=== PATIENT | female | born 1990 | race Caucasian/White ===

== ENCOUNTER 2021-04-08 07:54 | Inpatient (IN) | payer BC ==
[~2021-04-08] VITALS: Ht 165.1 cm; Wt 63.0 kg
[2021-04-08] VITALS (21 sets, daily range): BP systolic 0–153; BP diastolic 0–87
[2021-04-08] MEDS ORDERED: AMIODARONE 450 MG in IV DEXTROSE 5% 250 ML IV PRN (08:15)
[2021-04-08] MEDS ORDERED: NOREPINEPHRINE VIAL 8 MG in IV DEXTROSE 5% 250 ML IV ONE (08:15)
[2021-04-08] MEDS ORDERED: MAGNESIUM SULFATE 2GM 50 ML IV ONE (08:21)
[2021-04-08 08:42] LABS: CREATININE ISTAT 1.1 mg/dL (0.5-1.4); HEMOGLOBIN ISTAT 9.5 g/dL (12-15); ION CA ISTAT 1.19 mmol/L (1.13-1.32)
[2021-04-08] MEDS ORDERED: POTASSIUM CL 40MEQ D5-0.45NACL 1,000 ML IV SCH (09:00)
[2021-04-08] MEDS ORDERED: POTASSIUM BICARB 20 MEQ EFFERVESCENT TABLET. ONE (09:04)
--- NOTE | 2021-04-08 09:11 | RAD ---
EXAMINATION: Chest radiograph. VIEWS: 1 COMPARISON: None INDICATION:30 years, Female, few placement. FINDINGS: Normal cardiomediastinal silhouette. Diffuse bilateral pulmonary infiltrates. No pleural effusion or pneumothorax. No acute osseous process. Endotracheal tube tip locates approximately 3.2 cm proximal t o the walter. Enteric tube tip is off image, but the sidehole seen within the stomach. Possible kinki ng of the enteric tube within the gastric fundus. Left IJ central venous catheter terminates in the m id SVC. Defibrillator pad overlies the spine. IMPRESSION: 1. Diffuse bilateral pulmonary infiltrates. Differential includes severe pulmonary edema versus atyp ical pneumonia. 2. Lines and tubes as described. Electronically signed by: Carrie Acuña MD (04/08/2021 9:09 AM) [id number]
[2021-04-08 09:14] LABS: BASE EXCESS COOX -19 mmol/L (-3-3); HCO3 COOX 10 mmol/L (21-28); METHEMOGLOBIN 0.7 % (0.0-1.9); OXYHEMOGLOBIN 75.2 %; PCO2 COOX 35 mmHg (35-46); PO2 COOX 59 mmHg (85-108); SAT O2 COOX 76 % (92-99)
[2021-04-08] MEDS ORDERED: POTASSIUM BICARB 20 MEQ EFFERVESCENT TABLET. NG ONE (09:15)
[2021-04-08] MEDS ORDERED: POTASSIUM BICARB 20 MEQ EFFERVESCENT TABLET. PO ONE (09:15)
[2021-04-08 09:17] LABS: BASO # 0.1 x10^3/uL (0.0-0.2); BASO % 1 % (0-3); EOS % 0 % (0-3); HEMATOCRIT 26.4 % (36.0-47.0); HEMOGLOBIN 8.2 g/dL (12.0-15.5); LYMPH # 7.4 x10^3/uL (1.0-4.8); LYMPH % 64 % (24-48); MEAN CORPUSCULAR HEMOGLOBIN 34 pg (25-35); MEAN CORPUSCULAR HGB CONC 31 g/dL (31-37); MEAN CORPUSCULAR VOLUME 110 fL (79-100); MONO # 0.1 x10^3/uL (0.0-1.1); MONO % 1 % (0-9); NEUT # 3.9 x10^3/uL (1.8-7.7); NEUT % 34 % (31-73); PLATELET COUNT 78 x10^3/uL (140-400); RED CELL DISTRIBUTION WIDTH 15.5 % (11.5-14.5); WHITE BLOOD COUNT 11.6 x10^3/uL (4.0-11.0)
--- NOTE | 2021-04-08 09:28 | PHYS DOC ---
General Adult EDM: Chief Complaint: CPR/FULL ARREST HPI: HPI: 30-year-old female with no significant past medical history (uncomplicated vaginal births, has a 2 and 5yr old) presents to the ED brought in by EMS, found in asystole cardiac arrest, last known well around 11:30 PM the night before. Patient with no past medical history. Seen on the floor just below the couch ( later stated he pulled her off the couch to start cpr-her body was warm). EMS reports her chest still felt warm. Glucose in the 375. S/p 2 defibrillation's for ventricular fibrillation, epi x4 and amiodarone 300 mg. Supraglottic airway placed by ems. End-tidal CO2 was initially 60, now is 26. IO and 20-gauge in the left AC was placed. Review of Systems: Review of Systems: ROS unobtainable due to medical condition Heart Score: C/O Chest Pain: N/A Risk Factors: Risk Factors: DM, Current or recent (<one month) smoker, HTN, HLP, family history of CAD, obesity. Risk Scores: Score 0 - 3: 2.5% MACE over next 6 weeks - Discharge Home Score 4 - 6: 20.3% MACE over next 6 weeks - Admit for Clinical Observation Score 7 - 10: 72.7% MACE over next 6 weeks - Early Invasive Strategies Current Medications: Current Medications Medications (Trade) Dose Ordered Sig/Alejo Start Time Stop Time Status Last Admin Dose Admin Amiodarone HCl 450 mg/Dextrose 259 ml @ 0 mls/hr CONT PRN 04/08/21 08:15 04/09/21 08:05 Magnesium Sulfate 50 ml @ As Directed STK-MED ONCE 04/08/21 08:21 04/08/21 08:21 DC Norepinephrine Bitartrate 8 mg/ Dextrose 258 ml @ 12.578 mls/ hr 1X ONCE 04/08/21 08:15 04/09/21 04:45 Potassium Bicarbonate (Potassium Effervescent Tablet) 40 meq 1X ONCE 04/08/21 09:15 04/08/21 09:16 UNV Potassium Chloride/Dextrose/ Sod Cl 1,000 ml @ 80 mls/hr [id number] 04/08/21 09:00 04/08/21 09:12 DC Potassium Chloride/Water 100 ml @ 100 mls/hr Q1H 04/08/21 09:15 04/08/21 11:14 UNV Allergies: Allergies: Allergies Coded Allergies Type Severity Reaction Last Updated Verified No Known Drug Allergies 04/08/21 No Physical Exam: PE: Constitutional: Cardiac arrest in progress HENT: Normocephalic, atraumatic, Eyes: Fixed dilated pupils with normal conjunctiva Neck: No midline step-off or signs of trauma Cardiovascular: Wide-complex rhythm, Lungs & Thorax: Bilateral breath sounds with no spontaneous respirations Abdomen: soft, no tenderness, Skin: Warm, dry, Back: No midline spinal step-offs or signs of trauma Extremities: no cyanosis, no lower extremity edema Neurologic: GCS 3, unresponsive : melena present during cpr, Current Patient Data: Labs: Laboratory Tests Test 04/08/21 07:58 04/08/21 08:35 04/08/21 08:39 04/08/21 09:00 Glucose (Fingerstick) 458 mg/dL (70-99) H Ammonia 109 mcmol/L (11-34) H POC Hemoglobin 9.5 g/dL (12-15) L POC Hematocrit 28 % (36-40) L POC Sodium 139 mmol/L (135-145) POC Potassium 3.0 mmol/L (3.5-5.0) L POC Chloride 102 mmol/L (98-110) POC Total CO2 19 mmol/L (23-32) L Anion Gap 21 mmol/L (6-14) H POC Blood Urea Nitrogen 4 mg/dL (8-26) L POC Creatinine 1.1 mg/dL (0.5-1.4) Glucose Level 415 mg/dL (70-99) H POC Ionized Calcium (Nat) 1.19 mmol/L (1.13-1.32) O2 Saturation 76 % (92-99) L Arterial Blood pH 7.08 (7.35-7.45) *L Arterial Blood pCO2 at Patient Temp 35 mmHg (35-46) Arterial Blood pO2 at Patient Temp 59 mmHg (85-108) L Arterial Blood HCO3 10 mmol/L (21-28) L Arterial Blood Base Excess -19 mmol/L (-3-3) L Oxyhemoglobin 75.2 % Methemoglobin 0.7 % (0.0-1.9) Carbon Monoxide, Quantitative 0.2 % (0.0-1.9) FiO2 100 Laboratory Tests 04/08/21 08:39 Vital Signs: Vital Signs Date Time Temp Pulse Resp B/P (MAP) Pulse Ox O2 Delivery O2 Flow Rate FiO2 04/08/21 08:57 100 Ventilator EKG: EK Irregular rhythm 115 bpm, left axis deviation, wide complex rhythm, possible AINSLEY in aVR but cannot appreciate any reciprocal changes 1025 tachycardia 115 bpm, no axis deviation, QTC 503, no ST elevations ST depressions in 3, aVF, and V3 through V6 Radiology/Procedures: Radiology/Procedures: []IMAGING REPORT Signed PATIENT: EDDIE MARKHAM ACCOUNT: [id number] : 1990 LOCATION: ER AGE: 30 SEX: F EXAM STATUS: PRE ER ORD. PHYSICIAN: MARY GUARDADO DO REASON: tube placement PROCEDURE: PORTABLE CHEST 1V EXAMINATION: Chest radiograph. VIEWS: 1 COMPARISON: None INDICATION:30 years, Female, few placement. FINDINGS: Normal cardiomediastinal silhouette. Diffuse bilateral pulmonary infiltrates. No pleural effusion or pneumothorax. No acute osseous process. Endotracheal tube tip locates approximately 3.2 cm proximal to the walter. Enteric tube tip is off image, but the sidehole seen within the stomach. Possible kinking of the enteric tube within the gastric fundus. Left IJ central venous catheter terminates in the mid SVC. Defibrillator pad overlies the spine. IMPRESSION: 1. Diffuse bilateral pulmonary infiltrates. Differential includes severe pulmonary edema versus atypical pneumonia. 2. Lines and tubes as described. Electronically signed by: Anand Acuña MD (04/08/2021 9:09 AM) [id number] DICTATED and SIGNED BY: ANAND ACUÑA MD DATE: 04/08/21 [id number] 0 Indication: Vascular access Consent: Procedure was emergent for pressors and amiodarone drip Procedure: The patient was positioned appropriately and the skin over the right internal jugular vein was prepped and draped in a sterile fashion. Local anesthesia was used. Ultrasound guidance utilized. A large bore needle was used to identify the vein. A guide wire was then inserted into the vein through the needle. A triple lumen catheter was then inserted into the vessel over the guide wire using the Seldinger technique. All ports showed good, free flowing blood return and were flushed with saline solution. The catheter was then securely fastened to the skin with sutures and covered with a sterile dressing. A post procedure X-ray was ordered. The patient tolerated the procedure well. Complications: none. Indication: Respiratory failure Consent: Unable to give consent due to emergent nature. Medications Used: see nursing note Procedure: The patient was placed in the appropriate position. Intubation was performed via MAC 3 video laryngoscopy/glide scope with 7.5 ET tube secured with RT device. Initial confirmation of placement included adequate colorimetry, bilateral breath sounds, tube fogging, adequate chest rise, adequate pulse oximetry reading. A chest x-ray to verify correct placement of the tube showed appropriate tube position. The patient tolerated the procedure well. Complications: none. Chest x-ray concerning for atypical pneumonia versus pulmonary edema. IMAGING REPORT Signed PATIENT: EDDIE MARKHAM ACCOUNT: [id number] : 1990 LOCATION: [address] [place] [address] AGE: 30 SEX: F EXAM STATUS: ADM IN ORD. PHYSICIAN: IRENE TOVAR APRN REASON: cpr resusitation, ams PROCEDURE: CT HEAD AND CERVICAL SPINE WO EXAMINATION: CT HEAD AND C-SPINE WO CLINICAL HISTORY: Sudden onset cardiac arrest, altered mental status TECHNIQUE: Serial axial images without IV contrast were obtained from the vertex to the foramen magnum. CT of the cervical spine without IV contrast. Spiral, high resolution axial images were obtained from the skull base to the cervicothoracic junction with sagittal and coronal planar reconstructions. CT Dose Reduction Employed: One or more of the following individualized dose reduction techniques were utilized for this examination: 1. Automated exposure control 2. Adjustment of the mA and/or kV according to patient size 3. Use of iterative reconstruction technique. COMPARISON: None FINDINGS: BRAIN: Acute Change: No evidence of an acute contusion or other acute parenchymal process. Hemorrhage: No evidence of acute intracranial hemorrhage. Mass Lesion/Mass Effect: No evidence of intracranial mass or extraaxial fluid c ollection. No significant mass effect. Parenchyma: Unremarkable on limited evaluation with multifocal artifact. Ventricles: Ventricles within normal limits for age. Paranasal Sinuses and Skull Base: Mild secretions in the right ethmoid sinus. No evidence of acute calvarial fracture. C-SPINE: Alignment: Straightening to slight reversal of the normal cervical lordosis, possibly positional. Osseous Structures: No evidence of acute fracture or spondylolisthesis. Degenerative Changes: No significant degenerative changes. Cervical Soft Tissues: No prevertebral soft tissue swelling. Partially visualized endotracheal and enteric tubes. Partially visualized opacities in the lungs, better appreciated on same day CTA chest/abdomen/pelvis. IMPRESSION: BRAIN: No evidence of acute intracranial abnormality on limited evaluation. C-SPINE: No evidence of acute osseous abnormality involving the cervical spine. Electronically signed by: Kun Marcano DO (04/08/2021 11:16 AM) [facility] DICTATED and SIGNED BY: KUN MARCANO DO DATE: 04/08/21 [id number] 0 IMAGING REPORT Signed PATIENT: EDDIE MARKHAM ACCOUNT: [id number] : 1990 LOCATION: [facility] AGE: 30 SEX: F EXAM STATUS: ADM IN ORD. PHYSICIAN: KARTHIKEYAN MACARIO MD REASON: sudden onset cardiac arrest; eval for PE, GI bleed PROCEDURE: CT ANGIO CHEST ABD PELVIS CTA chest abdomen pelvis with contrast dated 04/08/2021. No comparison available. CLINICAL INDICATION: Cardiac arrest. Evaluate for pulmonary embolus. TECHNIQUE: Contiguous axial imaging the chest abdomen pelvis performed following the intravenous administration of 80 cc Omnipaque 350. Study was performed as dedicated CTA with thin cut coronal and sagittal MIPS reconstructions One or more of the following individualized dose reduction techniques were utilized for this examination: 1. Automated exposure control 2. Adjustment of the mA and/or kV according to patient size 3. Use of iterative reconstruction technique. FINDINGS: Contrast bolus is adequate. Evaluation is limited due to motion artifact and since of bilateral airspace disease. No evidence of central, lobar or proximal segmental pulmonary embolus. The distal segmental and subsegmental branches are not well evaluated based on technique. Heart size mildly enlarged. No pericardial effusion. No mediastinal, hilar or axillary lymphadenopathy. Endotracheal tube tip at the walter, approaching the right mainstem bronchus. Central airways are otherwise patent. Subtotal consolidation of the right lower lobe with air bronchograms. There is also patchy airspace disease in the right upper lobe and right middle lobe. Moderate consolidation at the posterior medial left lower lobe with mild patchy airspace disease in the left upper lobe and lingula. No pleural effusion. No pneumothorax. Liver is of diffuse low density suggesting fatty infiltration. No apparent mass. Biliary tree normal in caliber. Gallbladder is somewhat distended and there may be diffuse gallbladder wall thickening. Spleen is normal in size. Pancreas, adrenal glands and kidneys are unremarkable. No hydronephrosis. Small bowel and colon are mildly dilated and fluid-filled. No transition point. No inflammatory changes in the mesentery. No ascites or lymphadenopathy. Appendix is not clearly identified. No inflammatory changes in the right lower quadrant. Abdominal aorta is normal in caliber. Suspected moderate grade narrowing of the celiac artery origin. The SMA origin is patent. Bilateral renal arteries are patent. Images of pelvis show nondistended urinary bladder with Garcia catheter in place. Uterus and adnexa are unremarkable. No significant free fluid. No pelvic adenopathy. Bone window show no acute finding. IMPRESSION: 1. Limited exam. No evidence of central, lobar or proximal segmental pulmonary embolus. 2. Extensive bilateral airspace disease, likely pneumonia. 3. Mildly dilated fluid-filled small and large bowel with no apparent transition point. This could be related to enteritis or ileus. 4. Mild fatty infiltration of the liver. 5. The endotracheal tube tip appears to approach the right mainstem bronchus. Suggest pulling tube back about 2 cm. Electronically signed by: Jake Enciso MD (04/08/2021 11:25 AM) [id number] DICTATED and SIGNED BY: JAKE ENCISO MD DATE: 04/08/21 [id number] 0 Course & Med Decision Making: Course & Med Decision Making Pertinent Labs and Imaging studies reviewed. (See chart for details) Concern for asystole cardiac arrest, then refractory ventricular fibrillation. Multiple episodes of ROSC-please see nursing documentation for details of ACLS. Patient received epinephrine, sodium bicarb, calcium gluconate, magnesium, amiodarone and lidocaine. Patient obtained ROSC and patient was started on Levophed and amiodarone drip. Labs concerning for mild DKA, hypokalemia, hyperammonemia, melena with macrocytic anemia and thrombocytopenia and a urinary tract infection. Family including and mother notified of critical nature. Will admit to the ICU for further medical management. I have spoken with the patient and/or caregivers. I have explained the patient's condition, diagnosis and treatment plan based on the information available to me at this time. I have answered the patient's and/or caregivers questions and answered any concerns. The patient and/or caregivers have as good an understanding of the patient's diagnosis, condition and treatment plan as can be expected at this point. The patient has been stabilized within the capability of the emergency department. The patient will be transported for further care and management or will be moved to an observation or inpatient service. I have communicated with the staff or medical practitioner taking over this patient's care. Critical Care: Authorized and Performed by: Mary Guardado DO Total critical care time: approximately 120 minutes Due to a high probability of clinically significant, life threatening de terioration, the patient required my highest level of preparedness to intervene emergently and I personally spent this critical care time directly and personally managing the patient. This critical care time included obtaining a history; examining the patient; pulse oximetry; ventilator management if necessary; ordering and review of studies; arranging urgent treatment with development of a management plan; evaluation of patient's response to treatment; frequent reassessment; discussion with patient/family; and, discussions with other providers. This critical care time was performed to assess and manage the high probability of imminent, life-threatening deterioration that could result in multi-organ failure. It was exclusive of separately billable procedures and treating other patients and teaching time. Please see MDM section and the rest of the note for further information on patient assessment and treatment. Dragon Disclaimer: Dragon Disclaimer: This electronic medical record was generated, in whole or in part, using a voice recognition dictation system. Departure Departure Impression: Primary Impression: Cardiac arrest Additional Impressions: Ventricular fibrillation DKA (diabetic ketoacidosis) Hypokalemia Hyperammonemia UTI (urinary tract infection) Thrombocytopenia Macrocytic anemia Melena Lactic acidosis Disposition: ADMITTED INPATIENT Admitting Physician: SKYLER (Dr. Macario) Condition: CRITICAL MARY GUARDADO DO Apr 08, 2021 09:28
[2021-04-08 09:29] LABS: PROTHROMBIN TIME PATIENT 20.6 SEC (11.7-14.0)
[2021-04-08] MEDS ORDERED: 0.9 % SODIUM CHLORIDE 10 ML DISP.SYRIN. IV PRN (09:30)
[2021-04-08] MEDS: IV NORMAL SALINE 1000ML BAG 1,000 ML IV SCH ×3 (09:30→12:25)
[2021-04-08] MEDS ORDERED: VANCOMYCIN PER PHARMACY MC PRN (09:30)
[2021-04-08] MEDS ORDERED: INSULIN LISPRO 300 UNITS/3 ML VIAL. SQ ONE ×3 (09:30→17:45)
[2021-04-08] MEDS ORDERED: ZOLPIDEM 5 MG TABLET. PO PRN (09:30)
[2021-04-08] MEDS ORDERED: AZTREONAM IV Push 2 GM VIAL. IVP ONE (09:30)
[2021-04-08] MEDS ORDERED: ONDANSETRON PF 4 MG/2 ML VIAL. IVP PRN (09:30)
[2021-04-08 09:34] LABS: BILIRUBIN,URINE NEGATIVE (NEG); CLARITY,URINE CLEAR; COLOR,URINE YELLOW; NITRITE,URINE POSITIVE (NEG); PH,URINE 6.5 (<5.0-8.0); PROTEIN,URINE 30 mg/dL (NEG-TRACE); UROBILINOGEN,URINE 0.2 mg/dL (0.2 mg/dL)
[2021-04-08 09:35] LABS: PREG TEST PT QUAL NEGATIVE (NEG)
[2021-04-08 09:37] LABS: CALCIUM 8.3 mg/dL (8.5-10.1); CREATININE 1.3 mg/dL (0.6-1.0); GFR 48.4
[2021-04-08 09:39] LABS: AMPHETAMINE/METHAMPHETAMINE NEG (NEG); BARBITURATES NEG (NEG); BENZODIAZEPINES NEG (NEG); CANNABINOIDS POS (NEG); COCAINE NEG (NEG); METHADONE NEG (NEG); OPIATES NEG (NEG); PHENCYCLIDINE NEG (NEG)
[2021-04-08 09:40] LABS: ACETAMIN 5.45 mcg/ml (10-30); ETHANOL < 10 mg/dL (0-10); SALIC 0.5 mg/dL (2.8-20.0)
[2021-04-08] MEDS ORDERED: AMPICILLIN/SULBACTAM 3 GM in IV NORMAL SALINE 100ML 100 ML IV ONE (09:45)
[2021-04-08 09:55] LABS: ALBUMIN 1.7 g/dL (3.4-5.0); ALBUMIN/GLOBULIN RATIO 0.7 (1.0-1.7); MAGNESIUM 3.9 mg/dL (1.8-2.4); TOTAL BILIRUBIN 0.5 mg/dL (0.2-1.0)
[2021-04-08 09:57] LABS: PHOSPHORUS 10.5 mg/dL (2.6-4.7)
--- NOTE | 2021-04-08 09:57 | PDOC1 ---
History and Physical Date of Service: DOS: DATE: 04/08/21 TIME: 09:57 Chief Complaint: Chief Complain: found down History of Present Illness: HPI: 30-year-old female with no significant past medical history (uncomplicated vaginal births, has a 2 and 5yr old) presents to the ED brought in by EMS, found in asystole cardiac arrest, last known well around 11:30 PM the night before. Patient with no past medical history. Seen on the floor just below the couch ( later stated he pulled her off the couch to start cpr-her body was warm). EMS reports her chest still felt warm. Glucose in the 375. S/p 2 defibrillation's for ventricular fibrillation, epi x4 and amiodarone 300 mg. Supraglottic airway placed by ems. End-tidal CO2 was initially 60, now is 26. IO and 20-gauge in the left AC was placed. Past Medical/Surgical History: PMH/PSH: 2 previous vaginal births otherwise none Allergies: Allergies: Coded Allergies: No Known Drug Allergies (Unverified , 04/08/21) Family History: Family History: No known, reviewed with family Social History: Social History: No known alcohol drug use. Occ alcohol use Current Medications: Current Medications Current Medications Amiodarone HCl 450 mg/Dextrose 259 ml @ 0 mls/hr CONT PRN IV SEE I/O RECORD; Start 04/08/21 at 08:15; Stop 04/09/21 at 08:05 Norepinephrine Bitartrate 8 mg/ Dextrose 258 ml @ 12.578 mls/ hr 1X ONCE IV Last administered on 04/08/21at 09:42; Start 04/08/21 at 08:15; Stop 04/09/21 at 04:45 Magnesium Sulfate 50 ml @ As Directed STK-MED ONCE IV ; Start 04/08/21 at 08:21; Stop 04/08/21 at 08:21; Status DC Potassium Chloride/Dextrose/ Sod Cl 1,000 ml @ 80 mls/hr [id number] IV ; Start 04/08/21 at 09:00; Stop 04/08/21 at 09:12; Status DC Potassium Bicarbonate (Potassium Effervescent Tablet) 20 meq STK-MED ONCE .ROUTE ; Start 04/08/21 at 09:04; Stop 04/08/21 at 09:05; Status DC Potassium Bicarbonate (Potassium Effervescent Tablet) 40 meq 1X ONCE PO ; Start 04/08/21 at 09:15; Stop 04/08/21 at 09:16; Status UNV Potassium Bicarbonate (Potassium Effervescent Tablet) 40 meq 1X ONCE NG Last administered on 04/08/21at 09:10; Start 04/08/21 at 09:15; Stop 04/08/21 at 09:16; Status UNV Potassium Chloride/Water 100 ml @ 100 mls/hr Q1H IV ; Start 04/08/21 at 09:15; Stop 04/08/21 at 11:14 Lorazepam (Ativan) 1 mg PRN Q6HRS PRN PO ANXIETY / AGITATION; Start 04/08/21 at 09:30 Ondansetron HCl (Zofran) 4 mg PRN Q6HRS PRN IVP NAUSEA/VOMITING; Start 04/08/21 at 09:30 Zolpidem Tartrate (Ambien) 5 mg PRN QHS PRN PO INSOMNIA, MAY REPEAT IN 1HR; Start 04/08/21 at 09:30 Info (Icu Electrolyte Protocol) 1 ea DAILY MC ; Start 04/09/21 at 09:00 Sodium Chloride (Normal Saline Flush) 3 ml QSHIFT PRN IV AFTER MEDS AND BLOOD DRAWS; Start 04/08/21 at 09:30 Insulin Human Lispro (HumaLOG) 5 units ONCE ONCE SQ ; Start 04/08/21 at 09:30; Stop 04/08/21 at 09:40; Status DC Ampicillin Sodium/ Sulbactam Sodium 3 gm/Sodium Chloride 100 ml @ 200 mls/hr Q6HRS IV ; Start 04/08/21 at 12:00; Status UNV Azithromycin 500 mg/Sodium Chloride 250 ml @ 250 mls/hr Q24H IV ; Start 04/08/21 at 10:00; Stop 04/11/21 at 09:59 Vancomycin HCl (Vanco Per Pharmacy) 1 each PRN DAILY PRN MC SEE COMMENTS; Start 04/08/21 at 09:30; Status UNV Sodium Chloride 1,000 ml @ 100 mls/hr Q10H IV ; Start 04/08/21 at 09:30; Stop 04/09/21 at 09:29 Aztreonam (Azactam) 2 gm 1X ONCE IVP ; Start 04/08/21 at 09:30; Stop 04/08/21 at 09:40; Status DC Ampicillin Sodium/ Sulbactam Sodium 3 gm/Sodium Chloride 100 ml @ 200 mls/hr 1X ONCE IV ; Start 04/08/21 at 09:45; Stop 04/08/21 at 10:14 Insulin Human Lispro (HumaLOG) 5 units ONCE ONCE SQ ; Start 04/08/21 at 10:00; Stop 04/08/21 at 10:01 Sodium Chloride 1,000 ml @ 1,000 mls/hr 1X ONCE IV ; Start 04/08/21 at 10:00; Stop 04/08/21 at 10:59; Status UNV ROS: Review of Systems Review of System Cannot obtain as patient intubated and sedated Physical Exam: Vital Signs: Vital Signs Date Time Temp Pulse Resp B/P (MAP) Pulse Ox O2 Delivery O2 Flow Rate FiO2 04/08/21 08:57 100 Ventilator Physcial Exam: GEN: Intubated sedated HEENT: Normal cephalic, atraumatic, external auditory canals are patent EYES: No EOMI, pupils sluggish MUSCULOSKELETAL: well developed, nourished ENDOCRINE: No thyromegaly was palpated LYMPHATICS: No cervical chain or axillary nodes were noted HEMATOPOIETIC: No bruising NECK: Supple, no JVD, no thyromegaly was noted LUNGS: decreased throughout entire right lung although difficult to hear over ventilator HEART: RRR, S!, S2 present. Peripheral pulses intact, no obvious murmurs noted ABDOMEN: Soft, nontender. Positive bowel sounds, no organomegaly, normal bowel sounds EXTREMITIES: Without clubbing, cyanosis, or edema. Pedal pulses intact. NEUROLOGIC: intubated, sedated, some w/d to pain PSYCHIATRIC: cannot assess SKIN: No ulcerations or rashes, good skin turgor, no jaundice VASCULAR: Good capillary refill, neurovascular bundle appears to be intact Labs: Labs: Laboratory Tests Test 04/08/21 07:58 04/08/21 08:35 04/08/21 08:39 04/08/21 09:00 Glucose (Fingerstick) 458 mg/dL (70-99) White Blood Count 11.6 x10^3/uL (4.0-11.0) Red Blood Count 2.40 x10^6/uL (3.50-5.40) Hemoglobin 8.2 g/dL (12.0-15.5) Hematocrit 26.4 % (36.0-47.0) Mean Corpuscular Volume 110 fL (79-100) Mean Corpuscular Hemoglobin 34 pg (25-35) Mean Corpuscular Hemoglobin Concent 31 g/dL (31-37) Red Cell Distribution Width 15.5 % (11.5-14.5) Platelet Count 78 x10^3/uL (140-400) Neutrophils (%) (Auto) 34 % (31-73) Lymphocytes (%) (Auto) 64 % (24-48) Monocytes (%) (Auto) 1 % (0-9) Eosinophils (%) (Auto) 0 % (0-3) Basophils (%) (Auto) 1 % (0-3) Neutrophils # (Auto) 3.9 x10^3/uL (1.8-7.7) Lymphocytes # (Auto) 7.4 x10^3/uL (1.0-4.8) Monocytes # (Auto) 0.1 x10^3/uL (0.0-1.1) Eosinophils # (Auto) 0.0 x10^3/uL (0.0-0.7) Basophils # (Auto) 0.1 x10^3/uL (0.0-0.2) Prothrombin Time 20.6 SEC (11.7-14.0) Prothromb Time International Ratio 1.8 (0.8-1.1) Activated Partial Thromboplast Time 59 SEC (24-38) Sodium Level 144 mmol/L (136-145) Potassium Level 3.0 mmol/L (3.5-5.1) Chloride Level 103 mmol/L (98-107) Carbon Dioxide Level 17 mmol/L (21-32) Anion Gap 24 (6-14) 21 mmol/L (6-14) Blood Urea Nitrogen 6 mg/dL (7-20) Creatinine 1.3 mg/dL (0.6-1.0) Estimated GFR (Cockcroft-Gault) 48.4 BUN/Creatinine Ratio 5 (6-20) Glucose Level 427 mg/dL (70-99) 415 mg/dL (70-99) Lactic Acid Level 15.2 mmol/L (0.4-2.0) Calcium Level 8.3 mg/dL (8.5-10.1) Ammonia 109 mcmol/L (11-34) Troponin I High Sensitivity 1886 ng/L (4-50) ZI-Tay-A-Type Natriuretic Peptide 874 pg/mL (0-124) Serum Test, Qualitative Negative (NEG) Salicylates Level 0.5 mg/dL (2.8-20.0) Salicylate Last Dose Date Unknown Salicylate Last Dose Time Unknown Acetaminophen Level 5.45 mcg/ml (10-30) Acetaminophen Last Dose Date Unknown Acetaminophen Last Dose Time Unknown Ethyl Alcohol Level < 10 mg/dL (0-10) Acetone Level Neg (NEG) Bedside Hemoglobin 9.5 g/dL (12-15) Bedside Hematocrit 28 % (36-40) Bedside Sodium 139 mmol/L (135-145) Bedside Potassium 3.0 mmol/L (3.5-5.0) Bedside Chloride 102 mmol/L (98-110) Bedside Total CO2 19 mmol/L (23-32) Bedside Blood Urea Nitrogen 4 mg/dL (8-26) Bedside Creatinine 1.1 mg/dL (0.5-1.4) Bedside Ionized Calcium (Nat) 1.19 mmol/L (1.13-1.32) O2 Saturation 76 % (92-99) Arterial Blood pH 7.08 (7.35-7.45) Arterial Blood pCO2 at Patient Temp 35 mmHg (35-46) Arterial Blood pO2 at Patient Temp 59 mmHg (85-108) Arterial Blood HCO3 10 mmol/L (21-28) Arterial Blood Base Excess -19 mmol/L (-3-3) Oxyhemoglobin 75.2 % Methemoglobin 0.7 % (0.0-1.9) Carbon Monoxide, Quantitative 0.2 % (0.0-1.9) FiO2 100 Test 04/08/21 09:23 Urine Opiates Screen Neg (NEG) Urine Methadone Screen Neg (NEG) Urine Barbiturates Neg (NEG) Urine Phencyclidine Screen Neg (NEG) Urine Amphetamine/Methamphetamine Neg (NEG) Urine Benzodiazepines Screen Neg (NEG) Urine Cocaine Screen Neg (NEG) Urine Cannabinoids Screen Pos (NEG) Urine Ethyl Alcohol Neg (NEG) Laboratory Tests Test 04/08/21 07:58 04/08/21 08:35 04/08/21 08:39 04/08/21 09:00 Glucose (Fingerstick) 458 mg/dL (70-99) White Blood Count 11.6 x10^3/uL (4.0-11.0) Red Blood Count 2.40 x10^6/uL (3.50-5.40) Hemoglobin 8.2 g/dL (12.0-15.5) Hematocrit 26.4 % (36.0-47.0) Mean Corpuscular Volume 110 fL (79-100) Mean Corpuscular Hemoglobin 34 pg (25-35) Mean Corpuscular Hemoglobin Concent 31 g/dL (31-37) Red Cell Distribution Width 15.5 % (11.5-14.5) Platelet Count 78 x10^3/uL (140-400) Neutrophils (%) (Auto) 34 % (31-73) Lymphocytes (%) (Auto) 64 % (24-48) Monocytes (%) (Auto) 1 % (0-9) Eosinophils (%) (Auto) 0 % (0-3) Basophils (%) (Auto) 1 % (0-3) Neutrophils # (Auto) 3.9 x10^3/uL (1.8-7.7) Lymphocytes # (Auto) 7.4 x10^3/uL (1.0-4.8) Monocytes # (Auto) 0.1 x10^3/uL (0.0-1.1) Eosinophils # (Auto) 0.0 x10^3/uL (0.0-0.7) Basophils # (Auto) 0.1 x10^3/uL (0.0-0.2) Prothrombin Time 20.6 SEC (11.7-14.0) Prothromb Time International Ratio 1.8 (0.8-1.1) Activated Partial Thromboplast Time 59 SEC (24-38) Sodium Level 144 mmol/L (136-145) Potassium Level 3.0 mmol/L (3.5-5.1) Chloride Level 103 mmol/L (98-107) Carbon Dioxide Level 17 mmol/L (21-32) Anion Gap 24 (6-14) 21 mmol/L (6-14) Blood Urea Nitrogen 6 mg/dL (7-20) Creatinine 1.3 mg/dL (0.6-1.0) Estimated GFR (Cockcroft-Gault) 48.4 BUN/Creatinine Ratio 5 (6-20) Glucose Level 427 mg/dL (70-99) 415 mg/dL (70-99) Lactic Acid Level 15.2 mmol/L (0.4-2.0) Calcium Level 8.3 mg/dL (8.5-10.1) Ammonia 109 mcmol/L (11-34) Troponin I High Sensitivity 1886 ng/L (4-50) LA-Fvg-H-Type Natriuretic Peptide 874 pg/mL (0-124) Serum Test, Qualitative Negative (NEG) Salicylates Level 0.5 mg/dL (2.8-20.0) Salicylate Last Dose Date Unknown Salicylate Last Dose Time Unknown Acetaminophen Level 5.45 mcg/ml (10-30) Acetaminophen Last Dose Date Unknown Acetaminophen Last Dose Time Unknown Ethyl Alcohol Level < 10 mg/dL (0-10) Acetone Level Neg (NEG) Bedside Hemoglobin 9.5 g/dL (12-15) Bedside Hematocrit 28 % (36-40) Bedside Sodium 139 mmol/L (135-145) Bedside Potassium 3.0 mmol/L (3.5-5.0) Bedside Chloride 102 mmol/L (98-110) Bedside Total CO2 19 mmol/L (23-32) Bedside Blood Urea Nitrogen 4 mg/dL (8-26) Bedside Creatinine 1.1 mg/dL (0.5-1.4) Bedside Ionized Calcium (Nat) 1.19 mmol/L (1.13-1.32) O2 Saturation 76 % (92-99) Arterial Blood pH 7.08 (7.35-7.45) Arterial Blood pCO2 at Patient Temp 35 mmHg (35-46) Arterial Blood pO2 at Patient Temp 59 mmHg (85-108) Arterial Blood HCO3 10 mmol/L (21-28) Arterial Blood Base Excess -19 mmol/L (-3-3) Oxyhemoglobin 75.2 % Methemoglobin 0.7 % (0.0-1.9) Carbon Monoxide, Quantitative 0.2 % (0.0-1.9) FiO2 100 Test 04/08/21 09:23 Urine Opiates Screen Neg (NEG) Urine Methadone Screen Neg (NEG) Urine Barbiturates Neg (NEG) Urine Phencyclidine Screen Neg (NEG) Urine Amphetamine/Methamphetamine Neg (NEG) Urine Benzodiazepines Screen Neg (NEG) Urine Cocaine Screen Neg (NEG) Urine Cannabinoids Screen Pos (NEG) Urine Ethyl Alcohol Neg (NEG) Assessment/Plan Assessment/Plan Asystole Cardiac Arrest, Acute hypoxic respiratory failure, Vfib arrest, s/p Code Blue, Sepsis, -Admit to ICU -Levophed, vasopressin, neosynephrine for BP control -intubated -broad spectrum antibiotics -pulm consult -card consult -neuro consolt -nephro consult for crrt -with low EF conservative with fluids 90 minutes critical care time discussed advanced care planning with family at bedside for 25 minutes Justifications for Admission Other Justification KARTHIKEYAN MACARIO MD Apr 08, 2021 09:57
[2021-04-08 09:58] LABS: BACTERIA,URINE MANY /HPF (0-FEW)
[2021-04-08] MEDS ORDERED: EPINEPHrine SYRINGE 1 MG/10 ML SYRINGE ONE ×2 (10:00→13:00)
[2021-04-08] MEDS ORDERED: SODIUM BICARB ADULT 8.4% 50 MEQ/50 ML DISP.SYRIN. ONE ×2 (10:00→13:00)
[2021-04-08] MEDS ORDERED: AZITHROMYCIN 500 MG in IV NORMAL SALINE 250ML 250 ML IV SCH (10:00)
[2021-04-08] MEDS ORDERED: IV NORMAL SALINE 1000ML BAG 1,000 ML IV ONE (10:00)
[2021-04-08] MEDS: POTASSIUM CHLORIDE 20MEQ 100 ML IV SCH ×2 (10:03→11:35)
[2021-04-08] MEDS ORDERED: IOHEXOL 350 MG/ML 100 ML VIAL. IV ONE (10:30)
[2021-04-08 10:43] LABS: % BANDS 2 % (0-9); % LYMPHS 73 % (24-48); % SEGS 25 % (35-66); NUCLEATED RBC 1; PLT ESTIMATE DECREASED (ADEQUATE)
[2021-04-08 10:44] LABS: ANISOCYTOSIS PRESENT
[2021-04-08] MEDS ORDERED: MIDAZOLAM HCL/PF 5 MG/5 ML VIAL. ONE ×2 (11:11→11:12)
--- NOTE | 2021-04-08 11:19 | RAD ---
EXAMINATION: CT HEAD AND C-SPINE WO CLINICAL HISTORY: Sudden onset cardiac arrest, altered mental status TECHNIQUE: Serial axial images without IV contrast were obtained from the vertex to the foramen magnum. CT of the cervical spine without IV contrast. Spiral, high resolution axial images were obtained from the skull base to the cervicothoracic junction with sagittal and coronal planar reconstructions. CT Dose Reduction Employed: One or more of the following individualized dose reduction techniques wer e utilized for this examination: 1. Automated exposure control 2. Adjustment of the mA and/or kV ac cording to patient size 3. Use of iterative reconstruction technique. COMPARISON: None FINDINGS: BRAIN: Acute Change: No evidence of an acute contusion or other acute parenchymal process. Hemorrhage: No evidence of acute intracranial hemorrhage. Mass Lesion/Mass Effect: No evidence of intracranial mass or extraaxial fluid collection. No signific ant mass effect. Parenchyma: Unremarkable on limited evaluation with multifocal artifact. Ventricles: Ventricles within normal limits for age. Paranasal Sinuses and Skull Base: Mild secretions in the right ethmoid sinus. No evidence of acute ca lvarial fracture. C-SPINE: Alignment: Straightening to slight reversal of the normal cervical lordosis, possibly positional. Osseous Structures: No evidence of acute fracture or spondylolisthesis. Degenerative Changes: No significant degenerative changes. Cervical Soft Tissues: No prevertebral soft tissue swelling. Partially visualized endotracheal and en teric tubes. Partially visualized opacities in the lungs, better appreciated on same day CTA chest/ab domen/pelvis. IMPRESSION: BRAIN: No evidence of acute intracranial abnormality on limited evaluation. C-SPINE: No evidence of acute osseous abnormality involving the cervical spine. Electronically signed by: Kun Waggoner DO (04/08/2021 11:16 AM) [facility]AL[facility]
--- NOTE | 2021-04-08 11:28 | RAD ---
CTA chest abdomen pelvis with contrast dated 04/08/2021. No comparison available. CLINICAL INDICATION: Cardiac arrest. Evaluate for pulmonary embolus. TECHNIQUE: Contiguous axial imaging the chest abdomen pelvis performed following the intravenous administration of 80 cc Omnipaque 350. Study was performed as dedicated CTA with thin cut coronal and sagittal MIPS reconstructions One or more of the following individualized dose reduction techniques were utilized for this examinat ion: 1. Automated exposure control 2. Adjustment of the mA and/or kV according to patient size 3. Use of iterative reconstruction technique. FINDINGS: Contrast bolus is adequate. Evaluation is limited due to motion artifact and since of bilateral airsp sudha disease. No evidence of central, lobar or proximal segmental pulmonary embolus. The distal segmen tere and subsegmental branches are not well evaluated based on technique. Heart size mildly enlarged. No pericardial effusion. No mediastinal, hilar or axillary lymphadenopath y. Endotracheal tube tip at the walter, approaching the right mainstem bronchus. Central airways are oth erwise patent. Subtotal consolidation of the right lower lobe with air bronchograms. There is also pa tchy airspace disease in the right upper lobe and right middle lobe. Moderate consolidation at the po sterior medial left lower lobe with mild patchy airspace disease in the left upper lobe and lingula. No pleural effusion. No pneumothorax. Liver is of diffuse low density suggesting fatty infiltration. No apparent mass. Biliary tree normal in caliber. Gallbladder is somewhat distended and there may be diffuse gallbladder wall thickening. Spleen is normal in size. Pancreas, adrenal glands and kidneys are unremarkable. No hydronephrosis. Small bowel and colon are mildly dilated and fluid-filled. No transition point. No inflammatory gonzalez es in the mesentery. No ascites or lymphadenopathy. Appendix is not clearly identified. No inflammato ry changes in the right lower quadrant. Abdominal aorta is normal in caliber. Suspected moderate grade narrowing of the celiac artery origin. The SMA origin is patent. Bilateral renal arteries are patent. Images of pelvis show nondistended urinary bladder with Garcia catheter in place. Uterus and adnexa ar e unremarkable. No significant free fluid. No pelvic adenopathy. Bone window show no acute finding. IMPRESSION: 1. Limited exam. No evidence of central, lobar or proximal segmental pulmonary embolus. 2. Extensive bilateral airspace disease, likely pneumonia. 3. Mildly dilated fluid-filled small and large bowel with no apparent transition point. This could be related to enteritis or ileus. 4. Mild fatty infiltration of the liver. 5. The endotracheal tube tip appears to approach the right mainstem bronchus. Suggest pulling tube ba ck about 2 cm. Electronically signed by: Jake Enciso MD (04/08/2021 11:25 AM) [id number]
[2021-04-08] MEDS ORDERED: MIDAZOLAM 100mg/100ml NS BAG 100 ML IV PRN (11:30)
[2021-04-08] MEDS ORDERED: fentaNYL PF VIAL 100 MCG/2 ML VIAL IV ONE (11:30)
[2021-04-08] MEDS ORDERED: VECURONIUM BOLUS 10 MG VIAL. IV PRN (11:30)
[2021-04-08] MEDS ORDERED: MIDAZOLAM HCL/PF 2 MG/2 ML VIAL. IV ONE (11:30)
[2021-04-08] MEDS ORDERED: VECURONIUM BOLUS 10 MG VIAL. IV ONE (11:30)
[2021-04-08] MEDS ORDERED: PROPOFOL 100 ML IV PRN (11:30)
[2021-04-08] MEDS: ACETAMINOPHEN 650 MG/20.3 ML SOLUTION. NG SCH ×3 (11:30→19:30)
[2021-04-08] MEDS: busPIRone 10 MG TABLET. NG SCH ×2 (11:30→19:30)
[2021-04-08] MEDS ORDERED: POLYVINYL ALCOHOL 1.4% OPHTH SOLUTION 15ML BOTTLE. OU PRN ×2 (11:30→15:30)
[2021-04-08 11:44] LABS: BASO # 0.1 x10^3/uL (0.0-0.2); BASO % 1 % (0-3); EOS % 0 % (0-3); HEMATOCRIT 35.5 % (36.0-47.0); HEMOGLOBIN 11.4 g/dL (12.0-15.5); LYMPH # 1.9 x10^3/uL (1.0-4.8); LYMPH % 19 % (24-48); MEAN CORPUSCULAR HEMOGLOBIN 34 pg (25-35); MEAN CORPUSCULAR HGB CONC 32 g/dL (31-37); MEAN CORPUSCULAR VOLUME 107 fL (79-100); MONO # 0.1 x10^3/uL (0.0-1.1); MONO % 1 % (0-9); NEUT # 8.1 x10^3/uL (1.8-7.7); NEUT % 80 % (31-73); PLATELET COUNT 222 x10^3/uL (140-400); RED BLOOD COUNT 3.31 x10^6/uL (3.50-5.40); RED CELL DISTRIBUTION WIDTH 15.9 % (11.5-14.5); WHITE BLOOD COUNT 10.1 x10^3/uL (4.0-11.0)
[2021-04-08 11:51] LABS: CALCIUM 7.3 mg/dL (8.5-10.1); CREATININE 1.6 mg/dL (0.6-1.0); GFR 38.1; POTASSIUM 4.3 mmol/L (3.5-5.1)
[2021-04-08] MEDS ORDERED: OCTREOTIDE 500 MCG in IV NORMAL SALINE 100ML 100 ML IV PRN (12:00)
[2021-04-08] MEDS ORDERED: OCTREOTIDE 100 MCG/ML VIAL IV ONE (12:00)
[2021-04-08 12:02] LABS: MAGNESIUM 3.3 mg/dL (1.8-2.4)
[2021-04-08 12:03] LABS: PROTHROMBIN TIME PATIENT 20.3 SEC (11.7-14.0)
[2021-04-08 12:04] LABS: PHOSPHORUS 9.9 mg/dL (2.6-4.7)
[2021-04-08 12:20] LABS: BASE EXCESS ABG -18 mmol/L (-3-3); HCO3 ABG 12 mmol/L (21-28); PCO2 ABG 42 mmHg (35-46); PO2 ABG 53 mmHg (85-108); SAT O2 ABG 72 % (92-99)
[2021-04-08] MEDS: PANTOPRAZOLE SODIUM IV DRIP 80 MG in IV NORMAL SALINE 100ML 100 ML IV SCH ×2 (12:25→22:00)
[2021-04-08] MEDS: POLYVINYL ALCOHOL 1.4% OPHTH SOLUTION 15ML BOTTLE. OU SCH ×2 (12:26→18:00)
[2021-04-08] MEDS ORDERED: VANCOMYCIN 1.5 GM in IV NORMAL SALINE 500ML BAG 500 ML IV ONE (12:30)
[2021-04-08 12:31] LABS: FIO2 ABG 100/AC 24 450 +8
[2021-04-08] MEDS ORDERED: LIDOCAINE 2% 100 MG/5 ML SYRINGE. ONE (13:00)
[2021-04-08] MEDS ORDERED: CALCIUM CHLORIDE 1,000 MG/10 ML DISP.SYRIN ONE (13:00)
[2021-04-08] MEDS ORDERED: MAGNESIUM SULFATE PREMIX 1 GM/100 ML BAG. IV ONE (13:00)
[2021-04-08] MEDS ORDERED: NALOXONE 0.4 MG/ML VIAL. ONE (13:00)
[2021-04-08] MEDS ORDERED: AMIODARONE 150 MG/3 ML VIAL ONE (13:00)
[2021-04-08] MEDS ORDERED: SODIUM BICARBONATE VIAL 150 MEQ in IV STERILE WATER 1,000 ML IV SCH (13:15)
[2021-04-08] MEDS ORDERED: SODIUM BICARB ADULT 8.4% 50 MEQ/50 ML DISP.SYRIN. IV ONE (13:15)
--- NOTE | 2021-04-08 13:15 | PDOC ---
PULMONARY PROGRESS NOTES DATE: 04/08/21 TIME: 13:14 Vitals Vital Signs Date Time Temp Pulse Resp B/P (MAP) Pulse Ox O2 Delivery O2 Flow Rate FiO2 04/08/21 11:01 120 23 133/89 (104) 99 Ventilator 04/08/21 09:56 95.9 95.9 04/08/21 08:39 20.0 Labs Laboratory Tests Test 04/08/21 07:58 04/08/21 08:35 04/08/21 08:39 04/08/21 09:00 Glucose (Fingerstick) 458 mg/dL (70-99) White Blood Count 11.6 x10^3/uL (4.0-11.0) Red Blood Count 2.40 x10^6/uL (3.50-5.40) Hemoglobin 8.2 g/dL (12.0-15.5) Hematocrit 26.4 % (36.0-47.0) Mean Corpuscular Volume 110 fL (79-100) Mean Corpuscular Hemoglobin 34 pg (25-35) Mean Corpuscular Hemoglobin Concent 31 g/dL (31-37) Red Cell Distribution Width 15.5 % (11.5-14.5) Platelet Count 78 x10^3/uL (140-400) Neutrophils (%) (Auto) 34 % (31-73) Lymphocytes (%) (Auto) 64 % (24-48) Monocytes (%) (Auto) 1 % (0-9) Eosinophils (%) (Auto) 0 % (0-3) Basophils (%) (Auto) 1 % (0-3) Neutrophils # (Auto) 3.9 x10^3/uL (1.8-7.7) Lymphocytes # (Auto) 7.4 x10^3/uL (1.0-4.8) Monocytes # (Auto) 0.1 x10^3/uL (0.0-1.1) Eosinophils # (Auto) 0.0 x10^3/uL (0.0-0.7) Basophils # (Auto) 0.1 x10^3/uL (0.0-0.2) Segmented Neutrophils % 25 % (35-66) Band Neutrophils % 2 % (0-9) Lymphocytes % 73 % (24-48) Nucleated Red Blood Cells 1 Platelet Estimate Decreased (ADEQUATE) Anisocytosis Present Prothrombin Time 20.6 SEC (11.7-14.0) Prothromb Time International Ratio 1.8 (0.8-1.1) Activated Partial Thromboplast Time 59 SEC (24-38) Sodium Level 144 mmol/L (136-145) Potassium Level 3.0 mmol/L (3.5-5.1) Chloride Level 103 mmol/L (98-107) Carbon Dioxide Level 17 mmol/L (21-32) Anion Gap 24 (6-14) 21 mmol/L (6-14) Blood Urea Nitrogen 6 mg/dL (7-20) Creatinine 1.3 mg/dL (0.6-1.0) Estimated GFR (Cockcroft-Gault) 48.4 BUN/Creatinine Ratio 5 (6-20) Glucose Level 427 mg/dL (70-99) 415 mg/dL (70-99) Lactic Acid Level 15.2 mmol/L (0.4-2.0) Calcium Level 8.3 mg/dL (8.5-10.1) Phosphorus Level 10.5 mg/dL (2.6-4.7) Magnesium Level 3.9 mg/dL (1.8-2.4) Total Bilirubin 0.5 mg/dL (0.2-1.0) Direct Bilirubin 0.2 mg/dL (0.0-0.2) Aspartate Amino Transf (AST/SGOT) 511 U/L (15-37) Alanine Aminotransferase (ALT/SGPT) 213 U/L (14-59) Alkaline Phosphatase 71 U/L (46-116) Ammonia 109 mcmol/L (11-34) Creatine Kinase 422 U/L (26-192) Troponin I High Sensitivity 1886 ng/L (4-50) IQ-Top-U-Type Natriuretic Peptide 874 pg/mL (0-124) Total Protein 4.0 g/dL (6.4-8.2) Albumin 1.7 g/dL (3.4-5.0) Albumin/Globulin Ratio 0.7 (1.0-1.7) Serum Test, Qualitative Negative (NEG) Salicylates Level 0.5 mg/dL (2.8-20.0) Salicylate Last Dose Date Unknown Salicylate Last Dose Time Unknown Acetaminophen Level 5.45 mcg/ml (10-30) Acetaminophen Last Dose Date Unknown Acetaminophen Last Dose Time Unknown Ethyl Alcohol Level < 10 mg/dL (0-10) Acetone Level Neg (NEG) Bedside Hemoglobin 9.5 g/dL (12-15) Bedside Hematocrit 28 % (36-40) Bedside Sodium 139 mmol/L (135-145) Bedside Potassium 3.0 mmol/L (3.5-5.0) Bedside Chloride 102 mmol/L (98-110) Bedside Total CO2 19 mmol/L (23-32) Bedside Blood Urea Nitrogen 4 mg/dL (8-26) Bedside Creatinine 1.1 mg/dL (0.5-1.4) Bedside Ionized Calcium (Nat) 1.19 mmol/L (1.13-1.32) O2 Saturation 76 % (92-99) Arterial Blood pH 7.08 (7.35-7.45) Arterial Blood pCO2 at Patient Temp 35 mmHg (35-46) Arterial Blood pO2 at Patient Temp 59 mmHg (85-108) Arterial Blood HCO3 10 mmol/L (21-28) Arterial Blood Base Excess -19 mmol/L (-3-3) Oxyhemoglobin 75.2 % Methemoglobin 0.7 % (0.0-1.9) Carbon Monoxide, Quantitative 0.2 % (0.0-1.9) FiO2 100 Test 04/08/21 09:23 04/08/21 09:37 04/08/21 11:30 04/08/21 11:45 Urine Collection Type Unknown Urine Color Yellow Urine Clarity Clear Urine pH 6.5 (<5.0-8.0) Urine Specific [place] 1.010 (1.000-1.030) Urine Protein 30 mg/dL (NEG-TRACE) Urine Glucose (UA) Negative mg/dL (NEG) Urine Ketones (Stick) Negative mg/dL (NEG) Urine Blood Large (NEG) Urine Nitrite Positive (NEG) Urine Bilirubin Negative (NEG) Urine Urobilinogen Dipstick 0.2 mg/dL (0.2 mg/dL) Urine Leukocyte Esterase Small (NEG) Urine RBC 6-10 /HPF (0-2) Urine WBC 5-10 /HPF (0-4) Urine Squamous Epithelial Cells Mod /LPF Urine Bacteria Many /HPF (0-FEW) Urine Mucus Slight /LPF Urine Opiates Screen Neg (NEG) Urine Methadone Screen Neg (NEG) Urine Barbiturates Neg (NEG) Urine Phencyclidine Screen Neg (NEG) Urine Amphetamine/Methamphetamine Neg (NEG) Urine Benzodiazepines Screen Neg (NEG) Urine Cocaine Screen Neg (NEG) Urine Cannabinoids Screen Pos (NEG) Urine Ethyl Alcohol Neg (NEG) SARS-CoV-2 Antigen (Rapid) Negative (NEGATIVE) White Blood Count 10.1 x10^3/uL (4.0-11.0) Red Blood Count 3.31 x10^6/uL (3.50-5.40) Hemoglobin 11.4 g/dL (12.0-15.5) Hematocrit 35.5 % (36.0-47.0) Mean Corpuscular Volume 107 fL (79-100) Mean Corpuscular Hemoglobin 34 pg (25-35) Mean Corpuscular Hemoglobin Concent 32 g/dL (31-37) Red Cell Distribution Width 15.9 % (11.5-14.5) Platelet Count 222 x10^3/uL (140-400) Neutrophils (%) (Auto) 80 % (31-73) Lymphocytes (%) (Auto) 19 % (24-48) Monocytes (%) (Auto) 1 % (0-9) Eosinophils (%) (Auto) 0 % (0-3) Basophils (%) (Auto) 1 % (0-3) Neutrophils # (Auto) 8.1 x10^3/uL (1.8-7.7) Lymphocytes # (Auto) 1.9 x10^3/uL (1.0-4.8) Monocytes # (Auto) 0.1 x10^3/uL (0.0-1.1) Eosinophils # (Auto) 0.0 x10^3/uL (0.0-0.7) Basophils # (Auto) 0.1 x10^3/uL (0.0-0.2) Prothrombin Time 20.3 SEC (11.7-14.0) Prothromb Time International Ratio 1.8 (0.8-1.1) Activated Partial Thromboplast Time 42 SEC (24-38) Sodium Level 140 mmol/L (136-145) Potassium Level 4.3 mmol/L (3.5-5.1) Chloride Level 102 mmol/L (98-107) Carbon Dioxide Level 17 mmol/L (21-32) Anion Gap 21 (6-14) Blood Urea Nitrogen 8 mg/dL (7-20) Creatinine 1.6 mg/dL (0.6-1.0) Estimated GFR (Cockcroft-Gault) 38.1 Glucose Level 375 mg/dL (70-99) Calcium Level 7.3 mg/dL (8.5-10.1) Phosphorus Level 9.9 mg/dL (2.6-4.7) Magnesium Level 3.3 mg/dL (1.8-2.4) O2 Saturation 72 % (92-99) Arterial Blood pH 7.06 (7.35-7.45) Arterial Blood pCO2 at Patient Temp 42 mmHg (35-46) Arterial Blood pO2 at Patient Temp 53 mmHg (85-108) Arterial Blood HCO3 12 mmol/L (21-28) Arterial Blood Base Excess -18 mmol/L (-3-3) FiO2 100/ac 24 450 +8 Laboratory Tests Test 04/08/21 07:58 04/08/21 08:35 04/08/21 08:39 04/08/21 09:00 Glucose (Fingerstick) 458 mg/dL (70-99) White Blood Count 11.6 x10^3/uL (4.0-11.0) Red Blood Count 2.40 x10^6/uL (3.50-5.40) Hemoglobin 8.2 g/dL (12.0-15.5) Hematocrit 26.4 % (36.0-47.0) Mean Corpuscular Volume 110 fL (79-100) Mean Corpuscular Hemoglobin 34 pg (25-35) Mean Corpuscular Hemoglobin Concent 31 g/dL (31-37) Red Cell Distribution Width 15.5 % (11.5-14.5) Platelet Count 78 x10^3/uL (140-400) Neutrophils (%) (Auto) 34 % (31-73) Lymphocytes (%) (Auto) 64 % (24-48) Monocytes (%) (Auto) 1 % (0-9) Eosinophils (%) (Auto) 0 % (0-3) Basophils (%) (Auto) 1 % (0-3) Neutrophils # (Auto) 3.9 x10^3/uL (1.8-7.7) Lymphocytes # (Auto) 7.4 x10^3/uL (1.0-4.8) Monocytes # (Auto) 0.1 x10^3/uL (0.0-1.1) Eosinophils # (Auto) 0.0 x10^3/uL (0.0-0.7) Basophils # (Auto) 0.1 x10^3/uL (0.0-0.2) Segmented Neutrophils % 25 % (35-66) Band Neutrophils % 2 % (0-9) Lymphocytes % 73 % (24-48) Nucleated Red Blood Cells 1 Platelet Estimate Decreased (ADEQUATE) Anisocytosis Present Prothrombin Time 20.6 SEC (11.7-14.0) Prothromb Time International Ratio 1.8 (0.8-1.1) Activated Partial Thromboplast Time 59 SEC (24-38) Sodium Level 144 mmol/L (136-145) Potassium Level 3.0 mmol/L (3.5-5.1) Chloride Level 103 mmol/L (98-107) Carbon Dioxide Level 17 mmol/L (21-32) Anion Gap 24 (6-14) 21 mmol/L (6-14) Blood Urea Nitrogen 6 mg/dL (7-20) Creatinine 1.3 mg/dL (0.6-1.0) Estimated GFR (Cockcroft-Gault) 48.4 BUN/Creatinine Ratio 5 (6-20) Glucose Level 427 mg/dL (70-99) 415 mg/dL (70-99) Lactic Acid Level 15.2 mmol/L (0.4-2.0) Calcium Level 8.3 mg/dL (8.5-10.1) Phosphorus Level 10.5 mg/dL (2.6-4.7) Magnesium Level 3.9 mg/dL (1.8-2.4) Total Bilirubin 0.5 mg/dL (0.2-1.0) Direct Bilirubin 0.2 mg/dL (0.0-0.2) Aspartate Amino Transf (AST/SGOT) 511 U/L (15-37) Alanine Aminotransferase (ALT/SGPT) 213 U/L (14-59) Alkaline Phosphatase 71 U/L (46-116) Ammonia 109 mcmol/L (11-34) Creatine Kinase 422 U/L (26-192) Troponin I High Sensitivity 1886 ng/L (4-50) ML-Sxu-[id number]-Type Natriuretic Peptide 874 pg/mL (0-124) Total Protein 4.0 g/dL (6.4-8.2) Albumin 1.7 g/dL (3.4-5.0) Albumin/Globulin Ratio 0.7 (1.0-1.7) Serum Test, Qualitative Negative (NEG) Salicylates Level 0.5 mg/dL (2.8-20.0) Salicylate Last Dose Date Unknown Salicylate Last Dose Time Unknown Acetaminophen Level 5.45 mcg/ml (10-30) Acetaminophen Last Dose Date Unknown Acetaminophen Last Dose Time Unknown Ethyl Alcohol Level < 10 mg/dL (0-10) Acetone Level Neg (NEG) Bedside Hemoglobin 9.5 g/dL (12-15) Bedside Hematocrit 28 % (36-40) Bedside Sodium 139 mmol/L (135-145) Bedside Potassium 3.0 mmol/L (3.5-5.0) Bedside Chloride 102 mmol/L (98-110) Bedside Total CO2 19 mmol/L (23-32) Bedside Blood Urea Nitrogen 4 mg/dL (8-26) Bedside Creatinine 1.1 mg/dL (0.5-1.4) Bedside Ionized Calcium (Nat) 1.19 mmol/L (1.13-1.32) O2 Saturation 76 % (92-99) Arterial Blood pH 7.08 (7.35-7.45) Arterial Blood pCO2 at Patient Temp 35 mmHg (35-46) Arterial Blood pO2 at Patient Temp 59 mmHg (85-108) Arterial Blood HCO3 10 mmol/L (21-28) Arterial Blood Base Excess -19 mmol/L (-3-3) Oxyhemoglobin 75.2 % Methemoglobin 0.7 % (0.0-1.9) Carbon Monoxide, Quantitative 0.2 % (0.0-1.9) FiO2 100 Test 04/08/21 09:23 04/08/21 09:37 04/08/21 11:30 04/08/21 11:45 Urine Collection Type Unknown Urine Color Yellow Urine Clarity Clear Urine pH 6.5 (<5.0-8.0) Urine Specific [place] 1.010 (1.000-1.030) Urine Protein 30 mg/dL (NEG-TRACE) Urine Glucose (UA) Negative mg/dL (NEG) Urine Ketones (Stick) Negative mg/dL (NEG) Urine Blood Large (NEG) Urine Nitrite Positive (NEG) Urine Bilirubin Negative (NEG) Urine Urobilinogen Dipstick 0.2 mg/dL (0.2 mg/dL) Urine Leukocyte Esterase Small (NEG) Urine RBC 6-10 /HPF (0-2) Urine WBC 5-10 /HPF (0-4) Urine Squamous Epithelial Cells Mod /LPF Urine Bacteria Many /HPF (0-FEW) Urine Mucus Slight /LPF Urine Opiates Screen Neg (NEG) Urine Methadone Screen Neg (NEG) Urine Barbiturates Neg (NEG) Urine Phencyclidine Screen Neg (NEG) Urine Amphetamine/Methamphetamine Neg (NEG) Urine Benzodiazepines Screen Neg (NEG) Urine Cocaine Screen Neg (NEG) Urine Cannabinoids Screen Pos (NEG) Urine Ethyl Alcohol Neg (NEG) SARS-CoV-2 Antigen (Rapid) Negative (NEGATIVE) White Blood Count 10.1 x10^3/uL (4.0-11.0) Red Blood Count 3.31 x10^6/uL (3.50-5.40) Hemoglobin 11.4 g/dL (12.0-15.5) Hematocrit 35.5 % (36.0-47.0) Mean Corpuscular Volume 107 fL (79-100) Mean Corpuscular Hemoglobin 34 pg (25-35) Mean Corpuscular Hemoglobin Concent 32 g/dL (31-37) Red Cell Distribution Width 15.9 % (11.5-14.5) Platelet Count 222 x10^3/uL (140-400) Neutrophils (%) (Auto) 80 % (31-73) Lymphocytes (%) (Auto) 19 % (24-48) Monocytes (%) (Auto) 1 % (0-9) Eosinophils (%) (Auto) 0 % (0-3) Basophils (%) (Auto) 1 % (0-3) Neutrophils # (Auto) 8.1 x10^3/uL (1.8-7.7) Lymphocytes # (Auto) 1.9 x10^3/uL (1.0-4.8) Monocytes # (Auto) 0.1 x10^3/uL (0.0-1.1) Eosinophils # (Auto) 0.0 x10^3/uL (0.0-0.7) Basophils # (Auto) 0.1 x10^3/uL (0.0-0.2) Prothrombin Time 20.3 SEC (11.7-14.0) Prothromb Time International Ratio 1.8 (0.8-1.1) Activated Partial Thromboplast Time 42 SEC (24-38) Sodium Level 140 mmol/L (136-145) Potassium Level 4.3 mmol/L (3.5-5.1) Chloride Level 102 mmol/L (98-107) Carbon Dioxide Level 17 mmol/L (21-32) Anion Gap 21 (6-14) Blood Urea Nitrogen 8 mg/dL (7-20) Creatinine 1.6 mg/dL (0.6-1.0) Estimated GFR (Cockcroft-Gault) 38.1 Glucose Level 375 mg/dL (70-99) Calcium Level 7.3 mg/dL (8.5-10.1) Phosphorus Level 9.9 mg/dL (2.6-4.7) Magnesium Level 3.3 mg/dL (1.8-2.4) O2 Saturation 72 % (92-99) Arterial Blood pH 7.06 (7.35-7.45) Arterial Blood pCO2 at Patient Temp 42 mmHg (35-46) Arterial Blood pO2 at Patient Temp 53 mmHg (85-108) Arterial Blood HCO3 12 mmol/L (21-28) Arterial Blood Base Excess -18 mmol/L (-3-3) FiO2 100/ac 24 450 +8 Impression . Out of hospital cardiopulmonary arrest, respiratory failure. Massive GI bleed See orders Patient not expected to survive MACKENZIE PATEL MD Apr 08, 2021 13:15
--- NOTE | 2021-04-08 13:27 | PDOC2 ---
GI CONSULT Reason For Consult: gib HPI: HPI: 30-year-old female with no significant past medical history (uncomplicated vaginal births, has a 2 and 5yr old) presents to the ED brought in by EMS, found in asystole cardiac arrest, last known well around 11:30 PM the night before. Patient with no past medical history. Seen on the floor just below the couch ( later stated he pulled her off the couch to start cpr-her body was warm). EMS reports her chest still felt warm. Glucose in the 375. S/p 2 defibrillation's for ventricular fibrillation, epi x4 and amiodarone 300 mg. Supraglottic airway placed by ems. Nursing reprots blood from OGT and rectal bleeding. Labs with Hgb initially 8.2 and now 11.4 without prbcs AST 511 and ALT 213. No significant tylenol level CT with Mildly dilated fluid-filled small and large bowel with no apparent transition point. This could be related to enteritis or ileus. and Mild fatty infiltration of the liver. Her states tat she has not had abdominal pain or rectal bleeding prior to admit. She as been hiding vodka from him- he finds small bottles throughout the house. She also uses e cigarettes but denies drug use. The have Alleve in their home, but no known tylenol overdose. PMH: PMH: Past Medical/Surgical History: PMH/PSH: 2 previous vaginal births otherwise none Allergies: Allergies: Coded Allergies: No Known Drug Allergies (Unverified , 04/08/21) Family History: Family History: No known, reviewed with family Social History: Social History: No known alcohol drug use. Occ alcohol use Current Medications: Current Medications Current Medications Amiodarone HCl 450 mg/Dextrose 259 ml @ 0 mls/hr CONT PRN IV SEE I/O RECORD; Start 04/08/21 at 08:15; Stop 04/09/21 at 08:05 Norepinephrine Bitartrate 8 mg/ Dextrose 258 ml @ 12.578 mls/ hr 1X ONCE IV Last administered on 04/08/21at 09:42; Start 04/08/21 at 08:15; Stop 04/09/21 at 04:45 Magnesium Sulfate 50 ml @ As Directed STK-MED ONCE IV ; Start 04/08/21 at 08:21; Stop 04/08/21 at 08:21; Status DC Potassium Chloride/Dextrose/ Sod Cl 1,000 ml @ 80 mls/hr [id number] IV ; Start 04/08/21 at 09:00; Stop 04/08/21 at 09:12; Status DC Potassium Bicarbonate (Potassium Effervescent Tablet) 20 meq STK-MED ONCE .ROUTE ; Start 04/08/21 at 09:04; Stop 04/08/21 at 09:05; Status DC Potassium Bicarbonate (Potassium Effervescent Tablet) 40 meq 1X ONCE PO ; Start 04/08/21 at 09:15; Stop 04/08/21 at 09:16; Status UNV Potassium Bicarbonate (Potassium Effervescent Tablet) 40 meq 1X ONCE NG Last administered on 04/08/21at 09:10; Start 04/08/21 at 09:15; Stop 04/08/21 at 09:16; Status UNV Potassium Chloride/Water 100 ml @ 100 mls/hr Q1H IV ; Start 04/08/21 at 09:15; Stop 04/08/21 at 11:14 Lorazepam (Ativan) 1 mg PRN Q6HRS PRN PO ANXIETY / AGITATION; Start 04/08/21 at 09:30 Ondansetron HCl (Zofran) 4 mg PRN Q6HRS PRN IVP NAUSEA/VOMITING; Start 04/08/21 at 09:30 Zolpidem Tartrate (Ambien) 5 mg PRN QHS PRN PO INSOMNIA, MAY REPEAT IN 1HR; Start 04/08/21 at 09:30 Info ([facility] Electrolyte Protocol) 1 ea DAILY MC ; Start 04/09/21 at 09:00 Sodium Chloride (Normal Saline Flush) 3 ml QSHIFT PRN IV AFTER MEDS AND BLOOD DRAWS; Start 04/08/21 at 09:30 Insulin Human Lispro (HumaLOG) 5 units ONCE ONCE SQ ; Start 04/08/21 at 09:30; Stop 04/08/21 at 09:40; Status DC Ampicillin Sodium/ Sulbactam Sodium 3 gm/Sodium Chloride 100 ml @ 200 mls/hr Q6HRS IV ; Start 04/08/21 at 12:00; Status UNV Azithromycin 500 mg/Sodium Chloride 250 ml @ 250 mls/hr Q24H IV ; Start 04/08/21 at 10:00; Stop 04/11/21 at 09:59 Vancomycin HCl (Vanco Per Pharmacy) 1 each PRN DAILY PRN MC SEE COMMENTS; Start 04/08/21 at 09:30; Status UNV Sodium Chloride 1,000 ml @ 100 mls/hr Q10H IV ; Start 04/08/21 at 09:30; Stop 04/09/21 at 09:29 Aztreonam (Azactam) 2 gm 1X ONCE IVP ; Start 04/08/21 at 09:30; Stop 04/08/21 at 09:40; Status DC Ampicillin Sodium/ Sulbactam Sodium 3 gm/Sodium Chloride 100 ml @ 200 mls/hr 1X ONCE IV ; Start 04/08/21 at 09:45; Stop 04/08/21 at 10:14 Insulin Human Lispro (HumaLOG) 5 units ONCE ONCE SQ ; Start 04/08/21 at 10:00; Stop 04/08/21 at 10:01 Sodium Chloride 1,000 ml @ 1,000 mls/hr 1X ONCE IV ; Start 04/08/21 at 10:00; Stop 04/08/21 at 10:59; Status UNV Social History: Smoke: <1 pack per day ALCOHOL: heavy Drugs: None ROS: unobtainable VItals: Vitals: Vital Signs Date Time Temp Pulse Resp B/P (MAP) Pulse Ox O2 Delivery O2 Flow Rate FiO2 04/08/21 11:01 120 23 133/89 (104) 99 Ventilator 04/08/21 09:56 95.9 95.9 04/08/21 08:39 20.0 Labs: Labs: Laboratory Tests Test 04/08/21 07:58 04/08/21 08:35 04/08/21 08:39 04/08/21 09:00 Glucose (Fingerstick) 458 mg/dL (70-99) White Blood Count 11.6 x10^3/uL (4.0-11.0) Red Blood Count 2.40 x10^6/uL (3.50-5.40) Hemoglobin 8.2 g/dL (12.0-15.5) Hematocrit 26.4 % (36.0-47.0) Mean Corpuscular Volume 110 fL (79-100) Mean Corpuscular Hemoglobin 34 pg (25-35) Mean Corpuscular Hemoglobin Concent 31 g/dL (31-37) Red Cell Distribution Width 15.5 % (11.5-14.5) Platelet Count 78 x10^3/uL (140-400) Neutrophils (%) (Auto) 34 % (31-73) Lymphocytes (%) (Auto) 64 % (24-48) Monocytes (%) (Auto) 1 % (0-9) Eosinophils (%) (Auto) 0 % (0-3) Basophils (%) (Auto) 1 % (0-3) Neutrophils # (Auto) 3.9 x10^3/uL (1.8-7.7) Lymphocytes # (Auto) 7.4 x10^3/uL (1.0-4.8) Monocytes # (Auto) 0.1 x10^3/uL (0.0-1.1) Eosinophils # (Auto) 0.0 x10^3/uL (0.0-0.7) Basophils # (Auto) 0.1 x10^3/uL (0.0-0.2) Segmented Neutrophils % 25 % (35-66) Band Neutrophils % 2 % (0-9) Lymphocytes % 73 % (24-48) Nucleated Red Blood Cells 1 Platelet Estimate Decreased (ADEQUATE) Anisocytosis Present Prothrombin Time 20.6 SEC (11.7-14.0) Prothromb Time International Ratio 1.8 (0.8-1.1) Activated Partial Thromboplast Time 59 SEC (24-38) Sodium Level 144 mmol/L (136-145) Potassium Level 3.0 mmol/L (3.5-5.1) Chloride Level 103 mmol/L (98-107) Carbon Dioxide Level 17 mmol/L (21-32) Anion Gap 24 (6-14) 21 mmol/L (6-14) Blood Urea Nitrogen 6 mg/dL (7-20) Creatinine 1.3 mg/dL (0.6-1.0) Estimated GFR (Cockcroft-Gault) 48.4 BUN/Creatinine Ratio 5 (6-20) Glucose Level 427 mg/dL (70-99) 415 mg/dL (70-99) Lactic Acid Level 15.2 mmol/L (0.4-2.0) Calcium Level 8.3 mg/dL (8.5-10.1) Phosphorus Level 10.5 mg/dL (2.6-4.7) Magnesium Level 3.9 mg/dL (1.8-2.4) Total Bilirubin 0.5 mg/dL (0.2-1.0) Direct Bilirubin 0.2 mg/dL (0.0-0.2) Aspartate Amino Transf (AST/SGOT) 511 U/L (15-37) Alanine Aminotransferase (ALT/SGPT) 213 U/L (14-59) Alkaline Phosphatase 71 U/L (46-116) Ammonia 109 mcmol/L (11-34) Creatine Kinase 422 U/L (26-192) Troponin I High Sensitivity 1886 ng/L (4-50) VZ-Wuv-[id number]-Type Natriuretic Peptide 874 pg/mL (0-124) Total Protein 4.0 g/dL (6.4-8.2) Albumin 1.7 g/dL (3.4-5.0) Albumin/Globulin Ratio 0.7 (1.0-1.7) Serum Test, Qualitative Negative (NEG) Salicylates Level 0.5 mg/dL (2.8-20.0) Salicylate Last Dose Date Unknown Salicylate Last Dose Time Unknown Acetaminophen Level 5.45 mcg/ml (10-30) Acetaminophen Last Dose Date Unknown Acetaminophen Last Dose Time Unknown Ethyl Alcohol Level < 10 mg/dL (0-10) Acetone Level Neg (NEG) Bedside Hemoglobin 9.5 g/dL (12-15) Bedside Hematocrit 28 % (36-40) Bedside Sodium 139 mmol/L (135-145) Bedside Potassium 3.0 mmol/L (3.5-5.0) Bedside Chloride 102 mmol/L (98-110) Bedside Total CO2 19 mmol/L (23-32) Bedside Blood Urea Nitrogen 4 mg/dL (8-26) Bedside Creatinine 1.1 mg/dL (0.5-1.4) Bedside Ionized Calcium (Nta) 1.19 mmol/L (1.13-1.32) O2 Saturation 76 % (92-99) Arterial Blood pH 7.08 (7.35-7.45) Arterial Blood pCO2 at Patient Temp 35 mmHg (35-46) Arterial Blood pO2 at Patient Temp 59 mmHg (85-108) Arterial Blood HCO3 10 mmol/L (21-28) Arterial Blood Base Excess -19 mmol/L (-3-3) Oxyhemoglobin 75.2 % Methemoglobin 0.7 % (0.0-1.9) Carbon Monoxide, Quantitative 0.2 % (0.0-1.9) FiO2 100 Test 04/08/21 09:23 04/08/21 09:37 04/08/21 11:30 04/08/21 11:45 Urine Collection Type Unknown Urine Color Yellow Urine Clarity Clear Urine pH 6.5 (<5.0-8.0) Urine Specific Register 1.010 (1.000-1.030) Urine Protein 30 mg/dL (NEG-TRACE) Urine Glucose (UA) Negative mg/dL (NEG) Urine Ketones (Stick) Negative mg/dL (NEG) Urine Blood Large (NEG) Urine Nitrite Positive (NEG) Urine Bilirubin Negative (NEG) Urine Urobilinogen Dipstick 0.2 mg/dL (0.2 mg/dL) Urine Leukocyte Esterase Small (NEG) Urine RBC 6-10 /HPF (0-2) Urine WBC 5-10 /HPF (0-4) Urine Squamous Epithelial Cells Mod /LPF Urine Bacteria Many /HPF (0-FEW) Urine Mucus Slight /LPF Urine Opiates Screen Neg (NEG) Urine Methadone Screen Neg (NEG) Urine Barbiturates Neg (NEG) Urine Phencyclidine Screen Neg (NEG) Urine Amphetamine/Methamphetamine Neg (NEG) Urine Benzodiazepines Screen Neg (NEG) Urine Cocaine Screen Neg (NEG) Urine Cannabinoids Screen Pos (NEG) Urine Ethyl Alcohol Neg (NEG) SARS-CoV-2 Antigen (Rapid) Negative (NEGATIVE) White Blood Count 10.1 x10^3/uL (4.0-11.0) Red Blood Count 3.31 x10^6/uL (3.50-5.40) Hemoglobin 11.4 g/dL (12.0-15.5) Hematocrit 35.5 % (36.0-47.0) Mean Corpuscular Volume 107 fL (79-100) Mean Corpuscular Hemoglobin 34 pg (25-35) Mean Corpuscular Hemoglobin Concent 32 g/dL (31-37) Red Cell Distribution Width 15.9 % (11.5-14.5) Platelet Count 222 x10^3/uL (140-400) Neutrophils (%) (Auto) 80 % (31-73) Lymphocytes (%) (Auto) 19 % (24-48) Monocytes (%) (Auto) 1 % (0-9) Eosinophils (%) (Auto) 0 % (0-3) Basophils (%) (Auto) 1 % (0-3) Neutrophils # (Auto) 8.1 x10^3/uL (1.8-7.7) Lymphocytes # (Auto) 1.9 x10^3/uL (1.0-4.8) Monocytes # (Auto) 0.1 x10^3/uL (0.0-1.1) Eosinophils # (Auto) 0.0 x10^3/uL (0.0-0.7) Basophils # (Auto) 0.1 x10^3/uL (0.0-0.2) Prothrombin Time 20.3 SEC (11.7-14.0) Prothromb Time International Ratio 1.8 (0.8-1.1) Activated Partial Thromboplast Time 42 SEC (24-38) Sodium Level 140 mmol/L (136-145) Potassium Level 4.3 mmol/L (3.5-5.1) Chloride Level 102 mmol/L (98-107) Carbon Dioxide Level 17 mmol/L (21-32) Anion Gap 21 (6-14) Blood Urea Nitrogen 8 mg/dL (7-20) Creatinine 1.6 mg/dL (0.6-1.0) Estimated GFR (Cockcroft-Gault) 38.1 Glucose Level 375 mg/dL (70-99) Calcium Level 7.3 mg/dL (8.5-10.1) Phosphorus Level 9.9 mg/dL (2.6-4.7) Magnesium Level 3.3 mg/dL (1.8-2.4) O2 Saturation 72 % (92-99) Arterial Blood pH 7.06 (7.35-7.45) Arterial Blood pCO2 at Patient Temp 42 mmHg (35-46) Arterial Blood pO2 at Patient Temp 53 mmHg (85-108) Arterial Blood HCO3 12 mmol/L (21-28) Arterial Blood Base Excess -18 mmol/L (-3-3) FiO2 100/ac 24 450 +8 Imaging: Imaging: CTA chest abdomen pelvis with contrast dated 04/08/2021. No comparison available. CLINICAL INDICATION: Cardiac arrest. Evaluate for pulmonary embolus. TECHNIQUE: Contiguous axial imaging the chest abdomen pelvis performed following the intravenous administration of 80 cc Omnipaque 350. Study was performed as dedicated CTA with thin cut coronal and sagittal MIPS reconstructions One or more of the following individualized dose reduction techniques were utilized for this examination: 1. Automated exposure control 2. Adjustment of the mA and/or kV according to patient size 3. Use of iterative reconstruction technique. FINDINGS: Contrast bolus is adequate. Evaluation is limited due to motion artifact and since of bilateral airspace disease. No evidence of central, lobar or proximal segmental pulmonary embolus. The distal segmental and subsegmental branches are not well evaluated based on technique. Heart size mildly enlarged. No pericardial effusion. No mediastinal, hilar or axillary lymphadenopathy. Endotracheal tube tip at the walter, approaching the right mainstem bronchus. Central airways are otherwise patent. Subtotal consolidation of the right lower lobe with air bronchograms. There is also patchy airspace disease in the right upper lobe and right middle lobe. Moderate consolidation at the posterior medial left lower lobe with mild patchy airspace disease in the left upper lobe and lingula. No pleural effusion. No pneumothorax. Liver is of diffuse low density suggesting fatty infiltration. No apparent mass. Biliary tree normal in caliber. Gallbladder is somewhat distended and there may be diffuse gallbladder wall thickening. Spleen is normal in size. Pancreas, adrenal glands and kidneys are unremarkable. No hydronephrosis. Small bowel and colon are mildly dilated and fluid-filled. No transition point. No inflammatory changes in the mesentery. No ascites or lymphadenopathy. Appendix is not clearly identified. No inflammatory changes in the right lower quadrant. Abdominal aorta is normal in caliber. Suspected moderate grade narrowing of the celiac artery origin. The SMA origin is patent. Bilateral renal arteries are patent. Images of pelvis show nondistended urinary bladder with Garcia catheter in place. Uterus and adnexa are unremarkable. No significant free fluid. No pelvic adenopathy. Bone window show no acute finding. IMPRESSION: 1. Limited exam. No evidence of central, lobar or proximal segmental pulmonary embolus. 2. Extensive bilateral airspace disease, likely pneumonia. 3. Mildly dilated fluid-filled small and large bowel with no apparent transition point. This could be related to enteritis or ileus. 4. Mild fatty infiltration of the liver. 5. The endotracheal tube tip appears to approach the right mainstem bronchus. Suggest pulling tube back about 2 cm. Electronically signed by: Jake Enciso MD (04/08/2021 11:25 AM) [id number] PE: Physcial Exam: GEN: Intubated sedated HEENT: Normal cephalic, atraumatic, external auditory canals are patent EYES: No EOMI, pupils sluggish MUSCULOSKELETAL: well developed, nourished ENDOCRINE: No thyromegaly was palpated LYMPHATICS: No cervical chain or axillary nodes were noted HEMATOPOIETIC: No bruising NECK: Supple, no JVD, no thyromegaly was noted LUNGS: decreased throughout entire right lung although difficult to hear over ventilator HEART: RRR, S!, S2 present. Peripheral pulses intact, no obvious murmurs noted ABDOMEN: Soft, nontender. Positive bowel sounds, no organomegaly, normal bowel sounds EXTREMITIES: Without clubbing, cyanosis, or edema. Pedal pulses intact. NEUROLOGIC: intubated, sedated, some w/d to pain PSYCHIATRIC: cannot assess SKIN: No ulcerations or rashes, good skin turgor, no jaundice VASCULAR: Good capillary refill, neurovascular bundle appears to be intact A/P: A/P: A&P 1) GIB- from OGT and rectal: Agree with octreotide and protonix. If access limited, favor ppi over octreotide 2) Anemia- Hgb initally 8.2 now 11.4. Cont meds and monitor of Hgb 3) Elevated LFTS- suspect shock liver plus EtOH. CT with fatty liver. Will order abd sono and check hepatitis panel 4) EtOH abuse- favor banana bag D/w and grandmother at bedside FELTON DAILEY MD Apr 08, 2021 13:27
--- NOTE | 2021-04-08 13:28 | PDOC2 ---
CONSULT Date of Consult Date of Consult DATE: 04/08/21 TIME: 13:19 Reason for Consult Reason for Consult: Out of hospital cardiac arrest. Referring Physician Referring Physician: Dr. Espinoza Identification/Chief Complaint Chief Complaint Out of hospital cardiac arrest Source Source: Caregiver, Chart review History of Present Illness Reason for Visit: The patient is a 30-year-old female who reportedly been in her usual state of health. She has 2 children ages 2 and 5. She was found this morning at home by her family nonresponsive. Apparently CPR was started at home and paramedics were called. By food and drug research scientist report the patient was warm upon their arrival but was asystolic. CPR and ACLS guidelines were followed and the patient was transported to the emergency room at [facility]. The patient underwent continued attempts at resuscitation including multiple defibrillation attempts for V. fib. She was intubated and a pulse was recovered. Initial lab testing showed a glucose of 375. Magnesium was 3.9 that has decreased to 3.3. Hemoglobin hematocrit were 8.2/26.4. Initial potassium was 3.0 that has now increased to 4.3. Creatinine of 1.6, lactic acid of 15.2. CT scan of the head and spine showed no acute findings. CT scan of the chest showed no pulmonary emboli but did show extensive bilateral airspace disease. The preliminary report on an echo shows severely decreased ejection fraction of less than 20%. She is now intubated and continuing on IV amiodarone. She has no history of coronary disease, heart failure or cardiac arrhythmias. Past Surgical History Past Surgical History: Other (2 children.) Family History Family History: Hypertension Social History No Current Problem List Problem List Problems Medical Problems: (1) DKA (diabetic ketoacidosis) Status: Acute (2) Hyperammonemia Status: Acute (3) Hypokalemia Status: Acute (4) Lactic acidosis Status: Acute (5) Macrocytic anemia Status: Acute (6) Melena Status: Acute (7) Thrombocytopenia Status: Acute (8) UTI (urinary tract infection) Status: Acute (9) Ventricular fibrillation Status: Acute Current Medications Current Medications Current Medications Amiodarone HCl 450 mg/Dextrose 259 ml @ 0 mls/hr CONT PRN IV SEE I/O RECORD; Start 04/08/21 at 08:15; Stop 04/09/21 at 08:05 Norepinephrine Bitartrate 8 mg/ Dextrose 258 ml @ 12.578 mls/ hr 1X ONCE IV Last administered on 04/08/21at 09:42; Start 04/08/21 at 08:15; Stop 04/09/21 at 04:45 Magnesium Sulfate 50 ml @ As Directed STK-MED ONCE IV ; Start 04/08/21 at 08:21; Stop 04/08/21 at 08:21; Status DC Potassium Chloride/Dextrose/ Sod Cl 1,000 ml @ 80 mls/hr [id number] IV ; Start 04/08/21 at 09:00; Stop 04/08/21 at 09:12; Status DC Potassium Bicarbonate (Potassium Effervescent Tablet) 20 meq STK-MED ONCE .ROUTE ; Start 04/08/21 at 09:04; Stop 04/08/21 at 09:05; Status DC Potassium Bicarbonate (Potassium Effervescent Tablet) 40 meq 1X ONCE PO Last administered on 04/08/21at 09:15; Start 04/08/21 at 09:15; Stop 04/08/21 at 10:42; Status DC Potassium Bicarbonate (Potassium Effervescent Tablet) 40 meq 1X ONCE NG Last administered on 04/08/21at 09:10; Start 04/08/21 at 09:15; Stop 04/08/21 at 10:43; Status DC Potassium Chloride/Water 100 ml @ 100 mls/hr Q1H IV Last administered on at 11:35; Start 04/08/21 at 09:15; Stop 04/08/21 at 11:14; Status DC Lorazepam (Ativan) 1 mg PRN Q6HRS PRN PO ANXIETY / AGITATION; Start 04/08/21 at 09:30 Ondansetron HCl (Zofran) 4 mg PRN Q6HRS PRN IVP NAUSEA/VOMITING; Start 04/08/21 at 09:30 Zolpidem Tartrate (Ambien) 5 mg PRN QHS PRN PO INSOMNIA, MAY REPEAT IN 1HR; Start 04/08/21 at 09:30 Info (Icu Electrolyte Protocol) 1 ea DAILY MC ; Start 04/09/21 at 09:00 Sodium Chloride (Normal Saline Flush) 3 ml QSHIFT PRN IV AFTER MEDS AND BLOOD DRAWS; Start 04/08/21 at 09:30 Insulin Human Lispro (HumaLOG) 5 units ONCE ONCE SQ ; Start 04/08/21 at 09:30; Stop 04/08/21 at 09:40; Status DC Ampicillin Sodium/ Sulbactam Sodium 3 gm/Sodium Chloride 100 ml @ 200 mls/hr Q6HRS IV ; Start 04/08/21 at 18:00 Azithromycin 500 mg/Sodium Chloride 250 ml @ 250 mls/hr Q24H IV ; Start 04/08/21 at 10:00; Stop 04/11/21 at 09:59 Vancomycin HCl (Vanco Per Pharmacy) 1 each PRN DAILY PRN MC SEE COMMENTS; Start 04/08/21 at 09:30; Status UNV Sodium Chloride 1,000 ml @ 100 mls/hr Q10H IV Last administered on 04/08/21at 12:25; Start 04/08/21 at 09:30; Stop 04/09/21 at 09:29 Aztreonam (Azactam) 2 gm 1X ONCE IVP Last administered on 04/08/21at 11:36; Start 04/08/21 at 09:30; Stop 04/08/21 at 09:40; Status DC Ampicillin Sodium/ Sulbactam Sodium 3 gm/Sodium Chloride 100 ml @ 200 mls/hr 1X ONCE IV Last administered on 04/08/21at 10:09; Start 04/08/21 at 09:45; Stop 04/08/21 at 10:14; Status DC Insulin Human Lispro (HumaLOG) 5 units ONCE ONCE SQ ; Start 04/08/21 at 10:00; Stop 04/08/21 at 10:01; Status DC Sodium Chloride 1,000 ml @ 1,000 mls/hr 1X ONCE IV ; Start 04/08/21 at 10:00; Stop 04/08/21 at 09:58; Status DC Iohexol (Omnipaque 350 Mg/ml) 90 ml 1X ONCE IV Last administered on 04/08/21at 10:30; Start 04/08/21 at 10:30; Stop 04/08/21 at 10:43; Status DC Midazolam HCl (Versed) 5 mg STK-MED ONCE .ROUTE ; Start 04/08/21 at 11:11; Stop 04/08/21 at 11:12; Status DC Fentanyl Citrate (Fentanyl 2ml Vial) 100 mcg 1X ONCE IV ; Start 04/08/21 at 11 :30; Stop 04/08/21 at 11:46; Status DC Midazolam HCl (Versed) 5 mg 1X ONCE IV Last administered on 04/08/21at 11:30; Start 04/08/21 at 11:30; Stop 04/08/21 at 11:46; Status DC Buspirone HCl (Buspar) 30 mg Q8H NG ; Start 04/08/21 at 11:30; Stop 04/10/21 at 03:31 Acetaminophen (Tylenol) 650 mg Q4H NG ; Start 04/08/21 at 11:30 Vecuronium [place] (Norcuron Bolus) 6.3 mg 1X ONCE IV Last administered on 04/08/21at 11:46; Start 04/08/21 at 11:30; Stop 04/08/21 at 11:46; Status DC Glycerin/ Hypromellose/ Polyethylene (Artificial Tears) 1 drop Q6HRS OU Last administered on 04/08/21at 12:26; Start 04/08/21 at 12:00 Glycerin/ Hypromellose/ Polyethylene (Artificial Tears) 1 drop PRN Q15MIN PRN OU DRY EYE; Start 04/08/21 at 11:30 Pantoprazole Sodium (PROTONIX VIAL for IV PUSH) 40 mg DAILY IVP ; Start 04/09/21 at 09:00; Status Cancel Fentanyl Citrate 30 ml @ 0 mls/hr CONT PRN IV PER PROTOCOL.; Start 04/08/21 at 11:30 Propofol 100 ml @ 3.792 mls/ hr CONT PRN IV PER PROTOCOL; Start 04/08/21 at 11:30 Midazolam HCl 100 ml @ 2 mls/hr CONT PRN IV PER PROTOCOL; Start 04/08/21 at 11:30 Vecuronium [place] (Norcuron Bolus) 6 mg PRN Q1HR PRN IV SHIVERING; Start 04/08/21 at 11:30 Pantoprazole Sodium 80 mg/ Sodium Chloride 100 ml @ 10 mls/hr Q10H IV Last administered on 04/08/21at 12:25; Start 04/08/21 at 12:00 Octreotide Acetate (SandoSTATIN) 50 mcg 1X ONCE IV Last administered on 04/08/21at 12:24; Start 04/08/21 at 12:00; Stop 04/08/21 at 12:01; Status DC Octreotide Acetate 500 mcg/ Sodium Chloride 101 ml @ 0 mls/hr CONT PRN IV SEE I/O RECORD; Start 04/08/21 at 12:00 Vancomycin HCl 1.5 gm/Sodium Chloride 500 ml @ 250 mls/hr 1X ONCE IV Last administered on 04/08/21at 12:24; Start 04/08/21 at 12:30; Stop 04/08/21 at 14:29 Sodium Bicarbonate (Sodium Bicarb Adult 8.4% Syr) 100 meq 1X ONCE IV ; Start 04/08/21 at 13:15; Stop 04/08/21 at 13:16 Sodium Bicarbonate 150 meq/Sterile Water 1,150 ml @ 100 mls/hr [id number] IV ; Start 04/08/21 at 13:15 Allergies Allergies: Coded Allergies: No Known Drug Allergies (Unverified , 04/08/21) ROS Review of System Patient intubated as above. Physical Exam General: Other (Sedated on ventilator) Lungs: Other (Decreased breath sounds bilaterally) Heart: Other (Rate of 108) Abdomen: Normal bowel sounds Vitals VITALS Vital Signs Date Time Temp Pulse Resp B/P (MAP) Pulse Ox O2 Delivery O2 Flow Rate FiO2 04/08/21 11:01 120 23 133/89 (104) 99 Ventilator 04/08/21 09:56 95.9 95.9 04/08/21 08:39 20.0 Labs Labs Laboratory Tests Test 04/08/21 07:58 04/08/21 08:35 04/08/21 08:39 04/08/21 09:00 Glucose (Fingerstick) 458 mg/dL (70-99) White Blood Count 11.6 x10^3/uL (4.0-11.0) Red Blood Count 2.40 x10^6/uL (3.50-5.40) Hemoglobin 8.2 g/dL (12.0-15.5) Hematocrit 26.4 % (36.0-47.0) Mean Corpuscular Volume 110 fL (79-100) Mean Corpuscular Hemoglobin 34 pg (25-35) Mean Corpuscular Hemoglobin Concent 31 g/dL (31-37) Red Cell Distribution Width 15.5 % (11.5-14.5) Platelet Count 78 x10^3/uL (140-400) Neutrophils (%) (Auto) 34 % (31-73) Lymphocytes (%) (Auto) 64 % (24-48) Monocytes (%) (Auto) 1 % (0-9) Eosinophils (%) (Auto) 0 % (0-3) Basophils (%) (Auto) 1 % (0-3) Neutrophils # (Auto) 3.9 x10^3/uL (1.8-7.7) Lymphocytes # (Auto) 7.4 x10^3/uL (1.0-4.8) Monocytes # (Auto) 0.1 x10^3/uL (0.0-1.1) Eosinophils # (Auto) 0.0 x10^3/uL (0.0-0.7) Basophils # (Auto) 0.1 x10^3/uL (0.0-0.2) Segmented Neutrophils % 25 % (35-66) Band Neutrophils % 2 % (0-9) Lymphocytes % 73 % (24-48) Nucleated Red Blood Cells 1 Platelet Estimate Decreased (ADEQUATE) Anisocytosis Present Prothrombin Time 20.6 SEC (11.7-14.0) Prothromb Time International Ratio 1.8 (0.8-1.1) Activated Partial Thromboplast Time 59 SEC (24-38) Sodium Level 144 mmol/L (136-145) Potassium Level 3.0 mmol/L (3.5-5.1) Chloride Level 103 mmol/L (98-107) Carbon Dioxide Level 17 mmol/L (21-32) Anion Gap 24 (6-14) 21 mmol/L (6-14) Blood Urea Nitrogen 6 mg/dL (7-20) Creatinine 1.3 mg/dL (0.6-1.0) Estimated GFR (Cockcroft-Gault) 48.4 BUN/Creatinine Ratio 5 (6-20) Glucose Level 427 mg/dL (70-99) 415 mg/dL (70-99) Lactic Acid Level 15.2 mmol/L (0.4-2.0) Calcium Level 8.3 mg/dL (8.5-10.1) Phosphorus Level 10.5 mg/dL (2.6-4.7) Magnesium Level 3.9 mg/dL (1.8-2.4) Total Bilirubin 0.5 mg/dL (0.2-1.0) Direct Bilirubin 0.2 mg/dL (0.0-0.2) Aspartate Amino Transf (AST/SGOT) 511 U/L (15-37) Alanine Aminotransferase (ALT/SGPT) 213 U/L (14-59) Alkaline Phosphatase 71 U/L (46-116) Ammonia 109 mcmol/L (11-34) Creatine Kinase 422 U/L (26-192) Troponin I High Sensitivity 1886 ng/L (4-50) UM-Ppl-Q-Type Natriuretic Peptide 874 pg/mL (0-124) Total Protein 4.0 g/dL (6.4-8.2) Albumin 1.7 g/dL (3.4-5.0) Albumin/Globulin Ratio 0.7 (1.0-1.7) Serum Test, Qualitative Negative (NEG) Salicylates Level 0.5 mg/dL (2.8-20.0) Salicylate Last Dose Date Unknown Salicylate Last Dose Time Unknown Acetaminophen Level 5.45 mcg/ml (10-30) Acetaminophen Last Dose Date Unknown Acetaminophen Last Dose Time Unknown Ethyl Alcohol Level < 10 mg/dL (0-10) Acetone Level Neg (NEG) Bedside Hemoglobin 9.5 g/dL (12-15) Bedside Hematocrit 28 % (36-40) Bedside Sodium 139 mmol/L (135-145) Bedside Potassium 3.0 mmol/L (3.5-5.0) Bedside Chloride 102 mmol/L (98-110) Bedside Total CO2 19 mmol/L (23-32) Bedside Blood Urea Nitrogen 4 mg/dL (8-26) Bedside Creatinine 1.1 mg/dL (0.5-1.4) Bedside Ionized Calcium (Nat) 1.19 mmol/L (1.13-1.32) O2 Saturation 76 % (92-99) Arterial Blood pH 7.08 (7.35-7.45) Arterial Blood pCO2 at Patient Temp 35 mmHg (35-46) Arterial Blood pO2 at Patient Temp 59 mmHg (85-108) Arterial Blood HCO3 10 mmol/L (21-28) Arterial Blood Base Excess -19 mmol/L (-3-3) Oxyhemoglobin 75.2 % Methemoglobin 0.7 % (0.0-1.9) Carbon Monoxide, Quantitative 0.2 % (0.0-1.9) FiO2 100 Test 04/08/21 09:23 04/08/21 09:37 04/08/21 11:30 04/08/21 11:45 Urine Collection Type Unknown Urine Color Yellow Urine Clarity Clear Urine pH 6.5 (<5.0-8.0) Urine Specific [place] 1.010 (1.000-1.030) Urine Protein 30 mg/dL (NEG-TRACE) Urine Glucose (UA) Negative mg/dL (NEG) Urine Ketones (Stick) Negative mg/dL (NEG) Urine Blood Large (NEG) Urine Nitrite Positive (NEG) Urine Bilirubin Negative (NEG) Urine Urobilinogen Dipstick 0.2 mg/dL (0.2 mg/dL) Urine Leukocyte Esterase Small (NEG) Urine RBC 6-10 /HPF (0-2) Urine WBC 5-10 /HPF (0-4) Urine Squamous Epithelial Cells Mod /LPF Urine Bacteria Many /HPF (0-FEW) Urine Mucus Slight /LPF Urine Opiates Screen Neg (NEG) Urine Methadone Screen Neg (NEG) Urine Barbiturates Neg (NEG) Urine Phencyclidine Screen Neg (NEG) Urine Amphetamine/Methamphetamine Neg (NEG) Urine Benzodiazepines Screen Neg (NEG) Urine Cocaine Screen Neg (NEG) Urine Cannabinoids Screen Pos (NEG) Urine Ethyl Alcohol Neg (NEG) SARS-CoV-2 Antigen (Rapid) Negative (NEGATIVE) White Blood Count 10.1 x10^3/uL (4.0-11.0) Red Blood Count 3.31 x10^6/uL (3.50-5.40) Hemoglobin 11.4 g/dL (12.0-15.5) Hematocrit 35.5 % (36.0-47.0) Mean Corpuscular Volume 107 fL (79-100) Mean Corpuscular Hemoglobin 34 pg (25-35) Mean Corpuscular Hemoglobin Concent 32 g/dL (31-37) Red Cell Distribution Width 15.9 % (11.5-14.5) Platelet Count 222 x10^3/uL (140-400) Neutrophils (%) (Auto) 80 % (31-73) Lymphocytes (%) (Auto) 19 % (24-48) Monocytes (%) (Auto) 1 % (0-9) Eosinophils (%) (Auto) 0 % (0-3) Basophils (%) (Auto) 1 % (0-3) Neutrophils # (Auto) 8.1 x10^3/uL (1.8-7.7) Lymphocytes # (Auto) 1.9 x10^3/uL (1.0-4.8) Monocytes # (Auto) 0.1 x10^3/uL (0.0-1.1) Eosinophils # (Auto) 0.0 x10^3/uL (0.0-0.7) Basophils # (Auto) 0.1 x10^3/uL (0.0-0.2) Prothrombin Time 20.3 SEC (11.7-14.0) Prothromb Time International Ratio 1.8 (0.8-1.1) Activated Partial Thromboplast Time 42 SEC (24-38) Sodium Level 140 mmol/L (136-145) Potassium Level 4.3 mmol/L (3.5-5.1) Chloride Level 102 mmol/L (98-107) Carbon Dioxide Level 17 mmol/L (21-32) Anion Gap 21 (6-14) Blood Urea Nitrogen 8 mg/dL (7-20) Creatinine 1.6 mg/dL (0.6-1.0) Estimated GFR (Cockcroft-Gault) 38.1 Glucose Level 375 mg/dL (70-99) Calcium Level 7.3 mg/dL (8.5-10.1) Phosphorus Level 9.9 mg/dL (2.6-4.7) Magnesium Level 3.3 mg/dL (1.8-2.4) O2 Saturation 72 % (92-99) Arterial Blood pH 7.06 (7.35-7.45) Arterial Blood pCO2 at Patient Temp 42 mmHg (35-46) Arterial Blood pO2 at Patient Temp 53 mmHg (85-108) Arterial Blood HCO3 12 mmol/L (21-28) Arterial Blood Base Excess -18 mmol/L (-3-3) FiO2 100/ac 24 450 +8 Laboratory Tests Test 04/08/21 07:58 04/08/21 08:35 04/08/21 08:39 04/08/21 09:00 Glucose (Fingerstick) 458 mg/dL (70-99) White Blood Count 11.6 x10^3/uL (4.0-11.0) Red Blood Count 2.40 x10^6/uL (3.50-5.40) Hemoglobin 8.2 g/dL (12.0-15.5) Hematocrit 26.4 % (36.0-47.0) Mean Corpuscular Volume 110 fL (79-100) Mean Corpuscular Hemoglobin 34 pg (25-35) Mean Corpuscular Hemoglobin Concent 31 g/dL (31-37) Red Cell Distribution Width 15.5 % (11.5-14.5) Platelet Count 78 x10^3/uL (140-400) Neutrophils (%) (Auto) 34 % (31-73) Lymphocytes (%) (Auto) 64 % (24-48) Monocytes (%) (Auto) 1 % (0-9) Eosinophils (%) (Auto) 0 % (0-3) Basophils (%) (Auto) 1 % (0-3) Neutrophils # (Auto) 3.9 x10^3/uL (1.8-7.7) Lymphocytes # (Auto) 7.4 x10^3/uL (1.0-4.8) Monocytes # (Auto) 0.1 x10^3/uL (0.0-1.1) Eosinophils # (Auto) 0.0 x10^3/uL (0.0-0.7) Basophils # (Auto) 0.1 x10^3/uL (0.0-0.2) Segmented Neutrophils % 25 % (35-66) Band Neutrophils % 2 % (0-9) Lymphocytes % 73 % (24-48) Nucleated Red Blood Cells 1 Platelet Estimate Decreased (ADEQUATE) Anisocytosis Present Prothrombin Time 20.6 SEC (11.7-14.0) Prothromb Time International Ratio 1.8 (0.8-1.1) Activated Partial Thromboplast Time 59 SEC (24-38) Sodium Level 144 mmol/L (136-145) Potassium Level 3.0 mmol/L (3.5-5.1) Chloride Level 103 mmol/L (98-107) Carbon Dioxide Level 17 mmol/L (21-32) Anion Gap 24 (6-14) 21 mmol/L (6-14) Blood Urea Nitrogen 6 mg/dL (7-20) Creatinine 1.3 mg/dL (0.6-1.0) Estimated GFR (Cockcroft-Gault) 48.4 BUN/Creatinine Ratio 5 (6-20) Glucose Level 427 mg/dL (70-99) 415 mg/dL (70-99) Lactic Acid Level 15.2 mmol/L (0.4-2.0) Calcium Level 8.3 mg/dL (8.5-10.1) Phosphorus Level 10.5 mg/dL (2.6-4.7) Magnesium Level 3.9 mg/dL (1.8-2.4) Total Bilirubin 0.5 mg/dL (0.2-1.0) Direct Bilirubin 0.2 mg/dL (0.0-0.2) Aspartate Amino Transf (AST/SGOT) 511 U/L (15-37) Alanine Aminotransferase (ALT/SGPT) 213 U/L (14-59) Alkaline Phosphatase 71 U/L (46-116) Ammonia 109 mcmol/L (11-34) Creatine Kinase 422 U/L (26-192) Troponin I High Sensitivity 1886 ng/L (4-50) FO-Sjw-L-Type Natriuretic Peptide 874 pg/mL (0-124) Total Protein 4.0 g/dL (6.4-8.2) Albumin 1.7 g/dL (3.4-5.0) Albumin/Globulin Ratio 0.7 (1.0-1.7) Serum Test, Qualitative Negative (NEG) Salicylates Level 0.5 mg/dL (2.8-20.0) Salicylate Last Dose Date Unknown Salicylate Last Dose Time Unknown Acetaminophen Level 5.45 mcg/ml (10-30) Acetaminophen Last Dose Date Unknown Acetaminophen Last Dose Time Unknown Ethyl Alcohol Level < 10 mg/dL (0-10) Acetone Level Neg (NEG) Bedside Hemoglobin 9.5 g/dL (12-15) Bedside Hematocrit 28 % (36-40) Bedside Sodium 139 mmol/L (135-145) Bedside Potassium 3.0 mmol/L (3.5-5.0) Bedside Chloride 102 mmol/L (98-110) Bedside Total CO2 19 mmol/L (23-32) Bedside Blood Urea Nitrogen 4 mg/dL (8-26) Bedside Creatinine 1.1 mg/dL (0.5-1.4) Bedside Ionized Calcium (Nat) 1.19 mmol/L (1.13-1.32) O2 Saturation 76 % (92-99) Arterial Blood pH 7.08 (7.35-7.45) Arterial Blood pCO2 at Patient Temp 35 mmHg (35-46) Arterial Blood pO2 at Patient Temp 59 mmHg (85-108) Arterial Blood HCO3 10 mmol/L (21-28) Arterial Blood Base Excess -19 mmol/L (-3-3) Oxyhemoglobin 75.2 % Methemoglobin 0.7 % (0.0-1.9) Carbon Monoxide, Quantitative 0.2 % (0.0-1.9) FiO2 100 Test 04/08/21 09:23 04/08/21 09:37 04/08/21 11:30 04/08/21 11:45 Urine Collection Type Unknown Urine Color Yellow Urine Clarity Clear Urine pH 6.5 (<5.0-8.0) Urine Specific [place] 1.010 (1.000-1.030) Urine Protein 30 mg/dL (NEG-TRACE) Urine Glucose (UA) Negative mg/dL (NEG) Urine Ketones (Stick) Negative mg/dL (NEG) Urine Blood Large (NEG) Urine Nitrite Positive (NEG) Urine Bilirubin Negative (NEG) Urine Urobilinogen Dipstick 0.2 mg/dL (0.2 mg/dL) Urine Leukocyte Esterase Small (NEG) Urine RBC 6-10 /HPF (0-2) Urine WBC 5-10 /HPF (0-4) Urine Squamous Epithelial Cells Mod /LPF Urine Bacteria Many /HPF (0-FEW) Urine Mucus Slight /LPF Urine Opiates Screen Neg (NEG) Urine Methadone Screen Neg (NEG) Urine Barbiturates Neg (NEG) Urine Phencyclidine Screen Neg (NEG) Urine Amphetamine/Methamphetamine Neg (NEG) Urine Benzodiazepines Screen Neg (NEG) Urine Cocaine Screen Neg (NEG) Urine Cannabinoids Screen Pos (NEG) Urine Ethyl Alcohol Neg (NEG) SARS-CoV-2 Antigen (Rapid) Negative (NEGATIVE) White Blood Count 10.1 x10^3/uL (4.0-11.0) Red Blood Count 3.31 x10^6/uL (3.50-5.40) Hemoglobin 11.4 g/dL (12.0-15.5) Hematocrit 35.5 % (36.0-47.0) Mean Corpuscular Volume 107 fL (79-100) Mean Corpuscular Hemoglobin 34 pg (25-35) Mean Corpuscular Hemoglobin Concent 32 g/dL (31-37) Red Cell Distribution Width 15.9 % (11.5-14.5) Platelet Count 222 x10^3/uL (140-400) Neutrophils (%) (Auto) 80 % (31-73) Lymphocytes (%) (Auto) 19 % (24-48) Monocytes (%) (Auto) 1 % (0-9) Eosinophils (%) (Auto) 0 % (0-3) Basophils (%) (Auto) 1 % (0-3) Neutrophils # (Auto) 8.1 x10^3/uL (1.8-7.7) Lymphocytes # (Auto) 1.9 x10^3/uL (1.0-4.8) Monocytes # (Auto) 0.1 x10^3/uL (0.0-1.1) Eosinophils # (Auto) 0.0 x10^3/uL (0.0-0.7) Basophils # (Auto) 0.1 x10^3/uL (0.0-0.2) Prothrombin Time 20.3 SEC (11.7-14.0) Prothromb Time International Ratio 1.8 (0.8-1.1) Activated Partial Thromboplast Time 42 SEC (24-38) Sodium Level 140 mmol/L (136-145) Potassium Level 4.3 mmol/L (3.5-5.1) Chloride Level 102 mmol/L (98-107) Carbon Dioxide Level 17 mmol/L (21-32) Anion Gap 21 (6-14) Blood Urea Nitrogen 8 mg/dL (7-20) Creatinine 1.6 mg/dL (0.6-1.0) Estimated GFR (Cockcroft-Gault) 38.1 Glucose Level 375 mg/dL (70-99) Calcium Level 7.3 mg/dL (8.5-10.1) Phosphorus Level 9.9 mg/dL (2.6-4.7) Magnesium Level 3.3 mg/dL (1.8-2.4) O2 Saturation 72 % (92-99) Arterial Blood pH 7.06 (7.35-7.45) Arterial Blood pCO2 at Patient Temp 42 mmHg (35-46) Arterial Blood pO2 at Patient Temp 53 mmHg (85-108) Arterial Blood HCO3 12 mmol/L (21-28) Arterial Blood Base Excess -18 mmol/L (-3-3) FiO2 100/ac 24 450 +8 Images Images As above Assessment/Plan Assessment/Plan 1. Out of hospital cardiac arrest. Prolonged CPR. Now intubated. Lab testing as above. No acute changes on CT head and spine scan. No pulmonary emboli on a CT chest scan but extensive bilateral airspace disease. Initial report of e chocardiogram shows severely decreased ejection fraction of less than 20%. We will continue on IV amiodarone with close monitoring of lab. Continue on the ventilator with management as per the pulmonary service. I did discuss the patient's condition with her family in the emergency room. 2. Acute respiratory failure. Intubated. Post CPR as above. Diffuse infiltrates on imaging. Initial echo as above with severely decreased LV function. Will diurese as tolerated. 3. Acute systolic heart failure. Status post code as above. Ejection fraction initial report was severely decreased LV function. We will continue as above. 4. Reported melena. Initial hemoglobin hematocrit of 8.2 and 26.4. Repeat CBC pending. 5. Initial lactic acid level 15.3. Continuing treatment as above. SAVANNAH KRISHNAN MD Apr 08, 2021 13:28
--- NOTE | 2021-04-08 13:36 | CARD ---
MR#: [id number] Date of Study: 04/08/2021 Ordering Physician: KARTHIKEYAN MACARIO, Referring Physician: KARTHIKEYAN MACARIO, Tech: Marci Cortez, [facility] APPROVED REPORT EXAM: Two-dimensional and M-mode echocardiogram with Doppler and color Doppler. Other Information Quality : AverageHR: 106bpm INDICATION Ventricular Tachycardia, Cardiac Arrest 2D DIMENSIONS RVDd2.1 (2.9-3.5cm)Left Atrium(2D)2.6 (1.6-4.0cm) IVSd0.8 (0.7-1.1cm)Aortic Root(2D)2.8 (2.0-3.7cm) LVDd5.0 (3.9-5.9cm)LVOT Diameter2.0 (1.8-2.4cm) PWd1.3 (0.7-1.1cm)LVDs3.8 (2.5-4.0cm) FS (%) 23.1 %SV54.8 ml Aortic Valve AoV Peak Scooby.55.3cm/sAoV VTI7.5cm AO Peak GR.1.2mmHgLVOT VTI 5.48cm AO Mean GR.1mmHg Mitral Valve MV E Gxognydj43.9cm/sMV E Peak Gr.39mmHg MV DECEL [id number] A Gbzxgwxq84.5cm/s MV E Mean Gr.1mmHgE/A Ratio2.0 TDI Lateral E' P. V3.93cm/sMedial E' P. V3.48cm/s E/Lateral E'16.8E/Medial E'18.9 Tricuspid Valve TR P. [id number]/sRAP [id number] TR Peak Gr.[id number] LEFT VENTRICLE The left ventricle is normal size. There is borderline to mild concentric left ventricular hypertroph y. The systolic function is severely impaired. The Ejection Fraction is estimated at 20%. There is se samuel global hypokinesis of the left ventricle. Tissue Doppler imaging reveals moderate left ventricul ar diastolic dysfunction. RIGHT VENTRICLE The right ventricle is normal size. There is normal right ventricular wall thickness. Systolic functi on is borderline reduced. ATRIA The left atrium size is normal. The right atrium size is normal. The interatrial septum is intact wit h no evidence for an atrial septal defect or patent foramen ovale as noted on 2-D or Doppler imaging. AORTIC VALVE The aortic valve is normal in structure and function. Doppler and Color Flow revealed no significant aortic regurgitation. Calculated aortic valve area is 2.05 cm2 with maximum pressure gradient of 2 mm Hg and mean pressure gradient of 1 mmHg. There is no significant aortic valvular stenosis. MITRAL VALVE The mitral valve is normal in structure and function. There is no evidence of mitral valve prolapse. There is no mitral valve stenosis. Doppler and Color-flow revealed trace to mild mitral regurgitation . TRICUSPID VALVE The tricuspid valve is normal in structure and function. Doppler and Color Flow revealed trace tricus pid regurgitation with an estimated PAP of 24 mmHg. There is no tricuspid valve stenosis. PULMONIC VALVE The pulmonary valve is normal in structure and function. Doppler and Color Flow revealed trace pulmon ic valvular regurgitation. GREAT VESSELS The aortic root is normal in size. The IVC is normal in size and collapses >50% with inspiration. PERICARDIAL EFFUSION There is no evidence of significant pericardial effusion. Critical Notification Critical Value: Yes <Conclusion> The left ventricle is normal size. The systolic function is severely impaired. The Ejection Fraction is estimated at 20%. There is severe global hypokinesis of the left ventricle. There is borderline to mild concentric left ventricular hypertrophy. Doppler and Color Flow revealed no significant aortic regurgitation. There is no significant aortic valvular stenosis. Doppler and Color-flow revealed trace to mild mitral regurgitation. Doppler and Color Flow revealed trace tricuspid regurgitation with an estimated PAP of 24 mmHg. Signed by : Casper Murdock MD Electronically Approved : 04/08/2021 13:35:45
[2021-04-08] MEDS ORDERED: VASOPRESSIN - VASOSTRICT 20 UNIT in IV DEXTROSE 5% 100ML 100 ML IV PRN (13:45)
--- NOTE | 2021-04-08 14:06 | PDOC2 ---
NEUROLOGY CONSULT Date of Service DOS: DATE: 04/08/21 TIME: 13:59 Reason for Consult Reason for Consult: Postcode Referring Physician Referring Physician: Dr. Espinoza Source Source: Caregiver (Mother and aunt), Chart review History of Present Illness History of Present Illness The patient is a 30-year-old right-handed female whose found her on the couch unresponsive. Last known normal was 23:30 last night. She was still warm when he found her, he pulled her off the chart to perform CPR, she was found to be in asystole. She had 2 defibrillations for ventricular fibrillation, 4 doses of epinephrine, given amiodarone. She has no previous history. She has been depressed because her father of suicide 3 years ago and her brother of a motor cycle accident this year. Her has found some empty tiny vodka bottles around the house. Mother says patient does become depressed around this time a year Past Medical History Grav: 2 Para: 2 Past Surgical History Past Surgical History: No pertinent history Family History Family History: Other (Suicide, no cardiac disease) Social History Social History , occasional alcohol, occasional vape tobacco, no street drugs Current Medications Current Medications Current Medications Amiodarone HCl 450 mg/Dextrose 259 ml @ 0 mls/hr CONT PRN IV SEE I/O RECORD; Start 04/08/21 at 08:15; Stop 04/09/21 at 08:05 Norepinephrine Bitartrate 8 mg/ Dextrose 258 ml @ 12.578 mls/ hr 1X ONCE IV Last administered on 04/08/21at 09:42; Start 04/08/21 at 08:15; Stop 04/09/21 at 04:45 Magnesium Sulfate 50 ml @ As Directed STK-MED ONCE IV ; Start 04/08/21 at 08:21; Stop 04/08/21 at 08:21; Status DC Potassium Chloride/Dextrose/ Sod Cl 1,000 ml @ 80 mls/hr [id number] IV ; Start 04/08/21 at 09:00; Stop 04/08/21 at 09:12; Status DC Potassium Bicarbonate (Potassium Effervescent Tablet) 20 meq STK-MED ONCE .ROUTE ; Start 04/08/21 at 09:04; Stop 04/08/21 at 09:05; Status DC Potassium Bicarbonate (Potassium Effervescent Tablet) 40 meq 1X ONCE PO Last administered on 04/08/21at 09:15; Start 04/08/21 at 09:15; Stop 04/08/21 at 10:42; Status DC Potassium Bicarbonate (Potassium Effervescent Tablet) 40 meq 1X ONCE NG Last administered on 04/08/21at 09:10; Start 04/08/21 at 09:15; Stop 04/08/21 at 10:43; Status DC Potassium Chloride/Water 100 ml @ 100 mls/hr Q1H IV Last administered on 04/08/21at 11:35; Start 04/08/21 at 09:15; Stop 04/08/21 at 11:14; Status DC Lorazepam (Ativan) 1 mg PRN Q6HRS PRN PO ANXIETY / AGITATION; Start 04/08/21 at 09:30 Ondansetron HCl (Zofran) 4 mg PRN Q6HRS PRN IVP NAUSEA/VOMITING; Start 04/08/21 at 09:30 Zolpidem Tartrate (Ambien) 5 mg PRN QHS PRN PO INSOMNIA, MAY REPEAT IN 1HR; Start 04/08/21 at 09:30 Info ([facility]cu Electrolyte Protocol) 1 ea DAILY MC ; Start 04/09/21 at 09:00 Sodium Chloride (Normal Saline Flush) 3 ml QSHIFT PRN IV AFTER MEDS AND BLOOD DRAWS; Start 04/08/21 at 09:30 Insulin Human Lispro (HumaLOG) 5 units ONCE ONCE SQ ; Start 04/08/21 at 09:30; Stop 04/08/21 at 09:40; Status DC Ampicillin Sodium/ Sulbactam Sodium 3 gm/Sodium Chloride 100 ml @ 200 mls/hr Q6HRS IV ; Start 04/08/21 at 18:00 Azithromycin 500 mg/Sodium Chloride 250 ml @ 250 mls/hr Q24H IV ; Start 04/08/21 at 10:00; Stop 04/11/21 at 09:59 Vancomycin HCl (Vanco Per Pharmacy) 1 each PRN DAILY PRN MC SEE COMMENTS; Start 04/08/21 at 09:30; Status UNV Sodium Chloride 1,000 ml @ 100 mls/hr Q10H IV Last administered on 04/08/21at 12:25; Start 04/08/21 at 09:30; Stop 04/09/21 at 09:29 Aztreonam (Azactam) 2 gm 1X ONCE IVP Last administered on 04/08/21at 11:36; Start 04/08/21 at 09:30; Stop 04/08/21 at 09:40; Status DC Ampicillin Sodium/ Sulbactam Sodium 3 gm/Sodium Chloride 100 ml @ 200 mls/hr 1X ONCE IV Last administered on 04/08/21at 10:09; Start 04/08/21 at 09:45; Stop 04/08/21 at 10:14; Status DC Insulin Human Lispro (HumaLOG) 5 units ONCE ONCE SQ ; Start 04/08/21 at 10:00; Stop 04/08/21 at 10:01; Status DC Sodium Chloride 1,000 ml @ 1,000 mls/hr 1X ONCE IV ; Start 04/08/21 at 10:00; Stop 04/08/21 at 09:58; Status DC Iohexol (Omnipaque 350 Mg/ml) 90 ml 1X ONCE IV Last administered on 04/08/21at 10:30; Start 04/08/21 at 10:30; Stop 04/08/21 at 10:43; Status DC Midazolam HCl (Versed) 5 mg STK-MED ONCE .ROUTE ; Start 04/08/21 at 11:11; Stop 04/08/21 at 11:12; Status DC Fentanyl Citrate (Fentanyl 2ml Vial) 100 mcg 1X ONCE IV ; Start 04/08/21 at 11:30; Stop 04/08/21 at 11:46; Status DC Midazolam HCl (Versed) 5 mg 1X ONCE IV Last administered on 04/08/21at 11:30; Start 04/08/21 at 11:30; Stop 04/08/21 at 11:46; Status DC Buspirone HCl (Buspar) 30 mg Q8H NG ; Start 04/08/21 at 11:30; Stop 04/10/21 at 03:31 Acetaminophen (Tylenol) 650 mg Q4H NG ; Start 04/08/21 at 11:30 Vecuronium [place] (Norcuron Bolus) 6.3 mg 1X ONCE IV Last administered on 04/08/21at 11:46; Start 04/08/21 at 11:30; Stop 04/08/21 at 11:46; Status DC Glycerin/ Hypromellose/ Polyethylene (Artificial Tears) 1 drop Q6HRS OU Last administered on 04/08/21at 12:26; Start 04/08/21 at 12:00 Glycerin/ Hypromellose/ Polyethylene (Artificial Tears) 1 drop PRN Q15MIN PRN OU DRY EYE; Start 04/08/21 at 11:30 Pantoprazole Sodium (PROTONIX VIAL for IV PUSH) 40 mg DAILY IVP ; Start 04/09/21 at 09:00; Status Cancel Fentanyl Citrate 30 ml @ 0 mls/hr CONT PRN IV PER PROTOCOL.; Start 04/08/21 at 11:30 Propofol 100 ml @ 3.792 mls/ hr CONT PRN IV PER PROTOCOL; Start 04/08/21 at 11:30 Midazolam HCl 100 ml @ 2 mls/hr CONT PRN IV PER PROTOCOL; Start 04/08/21 at 11:30 Vecuronium [place] (Norcuron Bolus) 6 mg PRN Q1HR PRN IV SHIVERING; Start 04/08/21 at 11:30 Pantoprazole Sodium 80 mg/ Sodium Chloride 100 ml @ 10 mls/hr Q10H IV Last administered on 04/08/21at 12:25; Start 04/08/21 at 12:00 Octreotide Acetate (SandoSTATIN) 50 mcg 1X ONCE IV Last administered on 04/08/21at 12:24; Start 04/08/21 at 12:00; Stop 04/08/21 at 12:01; Status DC Octreotide Acetate 500 mcg/ Sodium Chloride 101 ml @ 0 mls/hr CONT PRN IV SEE I/O RECORD; Start 04/08/21 at 12:00 Vancomycin HCl 1.5 gm/Sodium Chloride 500 ml @ 250 mls/hr 1X ONCE IV Last administered on 04/08/21at 12:24; Start 04/08/21 at 12:30; Stop 04/08/21 at 14:29 Sodium Bicarbonate (Sodium Bicarb Adult 8.4% Syr) 100 meq 1X ONCE IV Last administered on 04/08/21at 13:18; Start 04/08/21 at 13:15; Stop 04/08/21 at 13:16; Status DC Sodium Bicarbonate 150 meq/Sterile Water 1,150 ml @ 100 mls/hr [id number] IV ; Start 04/08/21 at 13:15 Multivitamins 10 ml/Thiamine HCl 100 mg/Folic Acid 1 mg/Sodium Chloride 1,011.2 ml @ 100 mls/ hr DAILY IV ; Start 04/08/21 at 15:00; Stop 04/12/21 at 19:07 Multivitamins (Thera M Plus) 1 tab DAILY PO ; Start 04/13/21 at 09:00 Folic Acid (Folic Acid) 1 mg DAILY PO ; Start 04/13/21 at 09:00 Thiamine Mononitrate (Vitamin B-1) 100 mg DAILY PO ; Start 04/13/21 at 09:00 Lorazepam (Ativan Inj) 2 mg PRN Q1HR PRN IV For CIWA 8-14; Start 04/08/21 at 13:30 Lorazepam (Ativan Inj) 4 mg PRN Q1HR PRN IV For CIWA 15 or greater; Start 04/08/21 at 13:30 Vasopressin 20 unit/Dextrose 101 ml @ 12 mls/hr CONT PRN IV SEE I/O RECORD; Start 04/08/21 at 13:45 Allergies Allergies: Coded Allergies: No Known Drug Allergies (Unverified , 04/08/21) ROS Review of System Negative for fever, chills, weight loss, shortness of breath, chest pain, indigestion, hematochezia, melena, and dysuria. Full 14-point review of systems is negative. Physical Exam Physical Examination General: Well-developed, well-nourished, white female, in no acute distress HEENT: Normocephalic andatraumatic. Temporal arteriespulsatile and nontender. Neck: Supple without bruit, no meningismus Musculoskeletal: Stability:see neurologic. Gait exam:see neurologic. Tone:see neurologic.Strength:see neurologic. Neurological: Mental Status:On hypothermia protocol, not responsive. Cranial Nerves:Pupils minimally reactive to light. Oculocephalic reflex negative. Reflexes:1+ and symmetric with silent plantar responses. Motor:No response to pain. Coordination and gait:not testable. Sensory:not testable. Vitals VITALS Vital Signs Date Time Temp Pulse Resp B/P (MAP) Pulse Ox O2 Delivery O2 Flow Rate FiO2 04/08/21 11:01 120 23 133/89 (104) 99 Ventilator 04/08/21 09:56 95.9 95.9 04/08/21 08:39 20.0 Labs Labs Laboratory Tests Test 04/08/21 07:58 04/08/21 08:35 04/08/21 08:39 04/08/21 09:00 Glucose (Fingerstick) 458 mg/dL (70-99) White Blood Count 11.6 x10^3/uL (4.0-11.0) Red Blood Count 2.40 x10^6/uL (3.50-5.40) Hemoglobin 8.2 g/dL (12.0-15.5) Hematocrit 26.4 % (36.0-47.0) Mean Corpuscular Volume 110 fL (79-100) Mean Corpuscular Hemoglobin 34 pg (25-35) Mean Corpuscular Hemoglobin Concent 31 g/dL (31-37) Red Cell Distribution Width 15.5 % (11.5-14.5) Platelet Count 78 x10^3/uL (140-400) Neutrophils (%) (Auto) 34 % (31-73) Lymphocytes (%) (Auto) 64 % (24-48) Monocytes (%) (Auto) 1 % (0-9) Eosinophils (%) (Auto) 0 % (0-3) Basophils (%) (Auto) 1 % (0-3) Neutrophils # (Auto) 3.9 x10^3/uL (1.8-7.7) Lymphocytes # (Auto) 7.4 x10^3/uL (1.0-4.8) Monocytes # (Auto) 0.1 x10^3/uL (0.0-1.1) Eosinophils # (Auto) 0.0 x10^3/uL (0.0-0.7) Basophils # (Auto) 0.1 x10^3/uL (0.0-0.2) Segmented Neutrophils % 25 % (35-66) Band Neutrophils % 2 % (0-9) Lymphocytes % 73 % (24-48) Nucleated Red Blood Cells 1 Platelet Estimate Decreased (ADEQUATE) Anisocytosis Present Prothrombin Time 20.6 SEC (11.7-14.0) Prothromb Time International Ratio 1.8 (0.8-1.1) Activated Partial Thromboplast Time 59 SEC (24-38) Sodium Level 144 mmol/L (136-145) Potassium Level 3.0 mmol/L (3.5-5.1) Chloride Level 103 mmol/L (98-107) Carbon Dioxide Level 17 mmol/L (21-32) Anion Gap 24 (6-14) 21 mmol/L (6-14) Blood Urea Nitrogen 6 mg/dL (7-20) Creatinine 1.3 mg/dL (0.6-1.0) Estimated GFR (Cockcroft-Gault) 48.4 BUN/Creatinine Ratio 5 (6-20) Glucose Level 427 mg/dL (70-99) 415 mg/dL (70-99) Lactic Acid Level 15.2 mmol/L (0.4-2.0) Calcium Level 8.3 mg/dL (8.5-10.1) Phosphorus Level 10.5 mg/dL (2.6-4.7) Magnesium Level 3.9 mg/dL (1.8-2.4) Total Bilirubin 0.5 mg/dL (0.2-1.0) Direct Bilirubin 0.2 mg/dL (0.0-0.2) Aspartate Amino Transf (AST/SGOT) 511 U/L (15-37) Alanine Aminotransferase (ALT/SGPT) 213 U/L (14-59) Alkaline Phosphatase 71 U/L (46-116) Ammonia 109 mcmol/L (11-34) Creatine Kinase 422 U/L (26-192) Troponin I High Sensitivity 1886 ng/L (4-50) CA-Mzo-U-Type Natriuretic Peptide 874 pg/mL (0-124) Total Protein 4.0 g/dL (6.4-8.2) Albumin 1.7 g/dL (3.4-5.0) Albumin/Globulin Ratio 0.7 (1.0-1.7) Serum Test, Qualitative Negative (NEG) Salicylates Level 0.5 mg/dL (2.8-20.0) Salicylate Last Dose Date Unknown Salicylate Last Dose Time Unknown Acetaminophen Level 5.45 mcg/ml (10-30) Acetaminophen Last Dose Date Unknown Acetaminophen Last Dose Time Unknown Ethyl Alcohol Level < 10 mg/dL (0-10) Acetone Level Neg (NEG) Bedside Hemoglobin 9.5 g/dL (12-15) Bedside Hematocrit 28 % (36-40) Bedside Sodium 139 mmol/L (135-145) Bedside Potassium 3.0 mmol/L (3.5-5.0) Bedside Chloride 102 mmol/L (98-110) Bedside Total CO2 19 mmol/L (23-32) Bedside Blood Urea Nitrogen 4 mg/dL (8-26) Bedside Creatinine 1.1 mg/dL (0.5-1.4) Bedside Ionized Calcium (Nat) 1.19 mmol/L (1.13-1.32) O2 Saturation 76 % (92-99) Arterial Blood pH 7.08 (7.35-7.45) Arterial Blood pCO2 at Patient Temp 35 mmHg (35-46) Arterial Blood pO2 at Patient Temp 59 mmHg (85-108) Arterial Blood HCO3 10 mmol/L (21-28) Arterial Blood Base Excess -19 mmol/L (-3-3) Oxyhemoglobin 75.2 % Methemoglobin 0.7 % (0.0-1.9) Carbon Monoxide, Quantitative 0.2 % (0.0-1.9) FiO2 100 Test 04/08/21 09:23 04/08/21 09:37 04/08/21 11:30 04/08/21 11:45 Urine Collection Type Unknown Urine Color Yellow Urine Clarity Clear Urine pH 6.5 (<5.0-8.0) Urine Specific [place] 1.010 (1.000-1.030) Urine Protein 30 mg/dL (NEG-TRACE) Urine Glucose (UA) Negative mg/dL (NEG) Urine Ketones (Stick) Negative mg/dL (NEG) Urine Blood Large (NEG) Urine Nitrite Positive (NEG) Urine Bilirubin Negative (NEG) Urine Urobilinogen Dipstick 0.2 mg/dL (0.2 mg/dL) Urine Leukocyte Esterase Small (NEG) Urine RBC 6-10 /HPF (0-2) Urine WBC 5-10 /HPF (0-4) Urine Squamous Epithelial Cells Mod /LPF Urine Bacteria Many /HPF (0-FEW) Urine Mucus Slight /LPF Urine Opiates Screen Neg (NEG) Urine Methadone Screen Neg (NEG) Urine Barbiturates Neg (NEG) Urine Phencyclidine Screen Neg (NEG) Urine Amphetamine/Methamphetamine Neg (NEG) Urine Benzodiazepines Screen Neg (NEG) Urine Cocaine Screen Neg (NEG) Urine Cannabinoids Screen Pos (NEG) Urine Ethyl Alcohol Neg (NEG) SARS-CoV-2 Antigen (Rapid) Negative (NEGATIVE) White Blood Count 10.1 x10^3/uL (4.0-11.0) Red Blood Count 3.31 x10^6/uL (3.50-5.40) Hemoglobin 11.4 g/dL (12.0-15.5) Hematocrit 35.5 % (36.0-47.0) Mean Corpuscular Volume 107 fL (79-100) Mean Corpuscular Hemoglobin 34 pg (25-35) Mean Corpuscular Hemoglobin Concent 32 g/dL (31-37) Red Cell Distribution Width 15.9 % (11.5-14.5) Platelet Count 222 x10^3/uL (140-400) Neutrophils (%) (Auto) 80 % (31-73) Lymphocytes (%) (Auto) 19 % (24-48) Monocytes (%) (Auto) 1 % (0-9) Eosinophils (%) (Auto) 0 % (0-3) Basophils (%) (Auto) 1 % (0-3) Neutrophils # (Auto) 8.1 x10^3/uL (1.8-7.7) Lymphocytes # (Auto) 1.9 x10^3/uL (1.0-4.8) Monocytes # (Auto) 0.1 x10^3/uL (0.0-1.1) Eosinophils # (Auto) 0.0 x10^3/uL (0.0-0.7) Basophils # (Auto) 0.1 x10^3/uL (0.0-0.2) Prothrombin Time 20.3 SEC (11.7-14.0) Prothromb Time International Ratio 1.8 (0.8-1.1) Activated Partial Thromboplast Time 42 SEC (24-38) Sodium Level 140 mmol/L (136-145) Potassium Level 4.3 mmol/L (3.5-5.1) Chloride Level 102 mmol/L (98-107) Carbon Dioxide Level 17 mmol/L (21-32) Anion Gap 21 (6-14) Blood Urea Nitrogen 8 mg/dL (7-20) Creatinine 1.6 mg/dL (0.6-1.0) Estimated GFR (Cockcroft-Gault) 38.1 Glucose Level 375 mg/dL (70-99) Calcium Level 7.3 mg/dL (8.5-10.1) Phosphorus Level 9.9 mg/dL (2.6-4.7) Magnesium Level 3.3 mg/dL (1.8-2.4) O2 Saturation 72 % (92-99) Arterial Blood pH 7.06 (7.35-7.45) Arterial Blood pCO2 at Patient Temp 42 mmHg (35-46) Arterial Blood pO2 at Patient Temp 53 mmHg (85-108) Arterial Blood HCO3 12 mmol/L (21-28) Arterial Blood Base Excess -18 mmol/L (-3-3) FiO2 100/ac 24 450 +8 Laboratory Tests Test 04/08/21 07:58 04/08/21 08:35 04/08/21 08:39 04/08/21 09:00 Glucose (Fingerstick) 458 mg/dL (70-99) White Blood Count 11.6 x10^3/uL (4.0-11.0) Red Blood Count 2.40 x10^6/uL (3.50-5.40) Hemoglobin 8.2 g/dL (12.0-15.5) Hematocrit 26.4 % (36.0-47.0) Mean Corpuscular Volume 110 fL (79-100) Mean Corpuscular Hemoglobin 34 pg (25-35) Mean Corpuscular Hemoglobin Concent 31 g/dL (31-37) Red Cell Distribution Width 15.5 % (11.5-14.5) Platelet Count 78 x10^3/uL (140-400) Neutrophils (%) (Auto) 34 % (31-73) Lymphocytes (%) (Auto) 64 % (24-48) Monocytes (%) (Auto) 1 % (0-9) Eosinophils (%) (Auto) 0 % (0-3) Basophils (%) (Auto) 1 % (0-3) Neutrophils # (Auto) 3.9 x10^3/uL (1.8-7.7) Lymphocytes # (Auto) 7.4 x10^3/uL (1.0-4.8) Monocytes # (Auto) 0.1 x10^3/uL (0.0-1.1) Eosinophils # (Auto) 0.0 x10^3/uL (0.0-0.7) Basophils # (Auto) 0.1 x10^3/uL (0.0-0.2) Segmented Neutrophils % 25 % (35-66) Band Neutrophils % 2 % (0-9) Lymphocytes % 73 % (24-48) Nucleated Red Blood Cells 1 Platelet Estimate Decreased (ADEQUATE) Anisocytosis Present Prothrombin Time 20.6 SEC (11.7-14.0) Prothromb Time International Ratio 1.8 (0.8-1.1) Activated Partial Thromboplast Time 59 SEC (24-38) Sodium Level 144 mmol/L (136-145) Potassium Level 3.0 mmol/L (3.5-5.1) Chloride Level 103 mmol/L (98-107) Carbon Dioxide Level 17 mmol/L (21-32) Anion Gap 24 (6-14) 21 mmol/L (6-14) Blood Urea Nitrogen 6 mg/dL (7-20) Creatinine 1.3 mg/dL (0.6-1.0) Estimated GFR (Cockcroft-Gault) 48.4 BUN/Creatinine Ratio 5 (6-20) Glucose Level 427 mg/dL (70-99) 415 mg/dL (70-99) Lactic Acid Level 15.2 mmol/L (0.4-2.0) Calcium Level 8.3 mg/dL (8.5-10.1) Phosphorus Level 10.5 mg/dL (2.6-4.7) Magnesium Level 3.9 mg/dL (1.8-2.4) Total Bilirubin 0.5 mg/dL (0.2-1.0) Direct Bilirubin 0.2 mg/dL (0.0-0.2) Aspartate Amino Transf (AST/SGOT) 511 U/L (15-37) Alanine Aminotransferase (ALT/SGPT) 213 U/L (14-59) Alkaline Phosphatase 71 U/L (46-116) Ammonia 109 mcmol/L (11-34) Creatine Kinase 422 U/L (26-192) Troponin I High Sensitivity 1886 ng/L (4-50) NA-Vli-E-Type Natriuretic Peptide 874 pg/mL (0-124) Total Protein 4.0 g/dL (6.4-8.2) Albumin 1.7 g/dL (3.4-5.0) Albumin/Globulin Ratio 0.7 (1.0-1.7) Serum Test, Qualitative Negative (NEG) Salicylates Level 0.5 mg/dL (2.8-20.0) Salicylate Last Dose Date Unknown Salicylate Last Dose Time Unknown Acetaminophen Level 5.45 mcg/ml (10-30) Acetaminophen Last Dose Date Unknown Acetaminophen Last Dose Time Unknown Ethyl Alcohol Level < 10 mg/dL (0-10) Acetone Level Neg (NEG) Bedside Hemoglobin 9.5 g/dL (12-15) Bedside Hematocrit 28 % (36-40) Bedside Sodium 139 mmol/L (135-145) Bedside Potassium 3.0 mmol/L (3.5-5.0) Bedside Chloride 102 mmol/L (98-110) Bedside Total CO2 19 mmol/L (23-32) Bedside Blood Urea Nitrogen 4 mg/dL (8-26) Bedside Creatinine 1.1 mg/dL (0.5-1.4) Bedside Ionized Calcium (Nat) 1.19 mmol/L (1.13-1.32) O2 Saturation 76 % (92-99) Arterial Blood pH 7.08 (7.35-7.45) Arterial Blood pCO2 at Patient Temp 35 mmHg (35-46) Arterial Blood pO2 at Patient Temp 59 mmHg (85-108) Arterial Blood HCO3 10 mmol/L (21-28) Arterial Blood Base Excess -19 mmol/L (-3-3) Oxyhemoglobin 75.2 % Methemoglobin 0.7 % (0.0-1.9) Carbon Monoxide, Quantitative 0.2 % (0.0-1.9) FiO2 100 Test 04/08/21 09:23 04/08/21 09:37 04/08/21 11:30 04/08/21 11:45 Urine Collection Type Unknown Urine Color Yellow Urine Clarity Clear Urine pH 6.5 (<5.0-8.0) Urine Specific [place] 1.010 (1.000-1.030) Urine Protein 30 mg/dL (NEG-TRACE) Urine Glucose (UA) Negative mg/dL (NEG) Urine Ketones (Stick) Negative mg/dL (NEG) Urine Blood Large (NEG) Urine Nitrite Positive (NEG) Urine Bilirubin Negative (NEG) Urine Urobilinogen Dipstick 0.2 mg/dL (0.2 mg/dL) Urine Leukocyte Esterase Small (NEG) Urine RBC 6-10 /HPF (0-2) Urine WBC 5-10 /HPF (0-4) Urine Squamous Epithelial Cells Mod /LPF Urine Bacteria Many /HPF (0-FEW) Urine Mucus Slight /LPF Urine Opiates Screen Neg (NEG) Urine Methadone Screen Neg (NEG) Urine Barbiturates Neg (NEG) Urine Phencyclidine Screen Neg (NEG) Urine Amphetamine/Methamphetamine Neg (NEG) Urine Benzodiazepines Screen Neg (NEG) Urine Cocaine Screen Neg (NEG) Urine Cannabinoids Screen Pos (NEG) Urine Ethyl Alcohol Neg (NEG) SARS-CoV-2 Antigen (Rapid) Negative (NEGATIVE) White Blood Count 10.1 x10^3/uL (4.0-11.0) Red Blood Count 3.31 x10^6/uL (3.50-5.40) Hemoglobin 11.4 g/dL (12.0-15.5) Hematocrit 35.5 % (36.0-47.0) Mean Corpuscular Volume 107 fL (79-100) Mean Corpuscular Hemoglobin 34 pg (25-35) Mean Corpuscular Hemoglobin Concent 32 g/dL (31-37) Red Cell Distribution Width 15.9 % (11.5-14.5) Platelet Count 222 x10^3/uL (140-400) Neutrophils (%) (Auto) 80 % (31-73) Lymphocytes (%) (Auto) 19 % (24-48) Monocytes (%) (Auto) 1 % (0-9) Eosinophils (%) (Auto) 0 % (0-3) Basophils (%) (Auto) 1 % (0-3) Neutrophils # (Auto) 8.1 x10^3/uL (1.8-7.7) Lymphocytes # (Auto) 1.9 x10^3/uL (1.0-4.8) Monocytes # (Auto) 0.1 x10^3/uL (0.0-1.1) Eosinophils # (Auto) 0.0 x10^3/uL (0.0-0.7) Basophils # (Auto) 0.1 x10^3/uL (0.0-0.2) Prothrombin Time 20.3 SEC (11.7-14.0) Prothromb Time International Ratio 1.8 (0.8-1.1) Activated Partial Thromboplast Time 42 SEC (24-38) Sodium Level 140 mmol/L (136-145) Potassium Level 4.3 mmol/L (3.5-5.1) Chloride Level 102 mmol/L (98-107) Carbon Dioxide Level 17 mmol/L (21-32) Anion Gap 21 (6-14) Blood Urea Nitrogen 8 mg/dL (7-20) Creatinine 1.6 mg/dL (0.6-1.0) Estimated GFR (Cockcroft-Gault) 38.1 Glucose Level 375 mg/dL (70-99) Calcium Level 7.3 mg/dL (8.5-10.1) Phosphorus Level 9.9 mg/dL (2.6-4.7) Magnesium Level 3.3 mg/dL (1.8-2.4) O2 Saturation 72 % (92-99) Arterial Blood pH 7.06 (7.35-7.45) Arterial Blood pCO2 at Patient Temp 42 mmHg (35-46) Arterial Blood pO2 at Patient Temp 53 mmHg (85-108) Arterial Blood HCO3 12 mmol/L (21-28) Arterial Blood Base Excess -18 mmol/L (-3-3) FiO2 100/ac 24 450 +[address] HEAD AND C-SPINE WO CLINICAL HISTORY: Sudden onset cardiac arrest, altered mental status TECHNIQUE: Serial axial images without IV contrast were obtained from the vertex to the foramen magnum. CT of the cervical spine without IV contrast. Spiral, high resolution axial images were obtained from the skull base to the cervicothoracic junction with sagittal and coronal planar reconstructions. CT Dose Reduction Employed: One or more of the following individualized dose reduction techniques were utilized for this examination: 1. Automated exposure control 2. Adjustment of the mA and/or kV according to patient size 3. Use of iterative reconstruction technique. COMPARISON: None FINDINGS: BRAIN: Acute Change: No evidence of an acute contusion or other acute parenchymal process. Hemorrhage: No evidence of acute intracranial hemorrhage. Mass Lesion/Mass Effect: No evidence of intracranial mass or extraaxial fluid collection. No significant mass effect. Parenchyma: Unremarkable on limited evaluation with multifocal artifact. Ventricles: Ventricles within normal limits for age. Paranasal Sinuses and Skull Base: Mild secretions in the right ethmoid sinus. No evidence of acute calvarial fracture. C-SPINE: Alignment: Straightening to slight reversal of the normal cervical lordosis, possibly positional. Osseous Structures: No evidence of acute fracture or spondylolisthesis. Degenerative Changes: No significant degenerative changes. Cervical Soft Tissues: No prevertebral soft tissue swelling. Partially visualized endotracheal and enteric tubes. Partially visualized opacities in the lungs, better appreciated on same day CTA chest/abdomen/pelvis. IMPRESSION: BRAIN: No evidence of acute intracranial abnormality on limited evaluation. C-SPINE: No evidence of acute osseous abnormality involving the cervical spine. Assessment/Plan Assessment/Plan Impression: Out of hospital cardiac arrest, asystole, then ventricular fibrillation, currently on hypothermia protocol. Urine drug screen positive for cannabinoids, possible alcohol ingestion but not detected in the urine Recommendations: I discussed with family, too soon to offer any kind of neurological prognosis, she will be rewarmed tomorrow afternoon and will have a valid neurological exam on 04/10. Thank you for letting me help with the patient's care. NOE STRONG MD Apr 08, 2021 14:06
[2021-04-08] MEDS ORDERED: NOREPINEPHRINE VIAL 32 MG in IV DEXTROSE 5% 218 ML IV PRN (14:15)
[2021-04-08] MEDS ORDERED: INSULIN REGULAR VIAL 100 UNIT in IV NORMAL SALINE 100ML 100 ML IV PRN (14:30)
[2021-04-08] MEDS ORDERED: LIDOCAINE WITH 8.4% SOD BICARB 3 ML DISP.SYRIN. ONE (14:35)
[2021-04-08] MEDS ORDERED: MULTIVIT INFUSN,ADULT 4,VIT K 10 ML, THIAMINE INJ 100 MG, FOLIC ACID INJ 1 MG in IV NOR... IV SCH (15:00)
--- NOTE | 2021-04-08 15:24 | RAD ---
EXAMINATION: XR CHEST 1V CLINICAL HISTORY: Line placement EXAM DATE/TIME: 04/08/2021 3:17 PM COMPARISON: 04/08/2021 8:57 AM FINDINGS/ IMPRESSION: Interval placement of right internal jugular hemodialysis catheter terminating in the right atrium. A dditional support devices remain in similar positions. Remainder of the study otherwise unchanged wit h persistent opacities in the right greater than left lungs. Electronically signed by: Kun Waggoner DO (04/08/2021 3:21 PM) JACKIE
[2021-04-08] MEDS ORDERED: LIDOCAINE WITH 8.4% SOD BICARB 3 ML DISP.SYRIN. INJ ONE (15:30)
[2021-04-08] MEDS ORDERED: IV NORMAL SALINE 500ML BAG 500 ML IV PRN (15:30)
[2021-04-08] MEDS ORDERED: ATROPINE 0.5 MG/5 ML DISP.SYRINGE. IV PRN (15:30)
--- NOTE | 2021-04-08 16:41 | PDOC ---
Provider Note Date of Service: DATE: 04/08/21 TIME: 16:35 Provider Note Anesthesia note: Requested for arterial line placement on pt found down at home s/p cardiac arrest resuscitation in hypothermia protocol. 18 ga Arrow cath placed in right femoral artery using sterile technique and chlorhexidene prep. Sutured in place with 2.0 silk suture and covered with biopatch and opsite drsg. Good wave form on monitor. Justifications for Admission Other Justification AINSLEY GANNON CRNA Apr 08, 2021 16:41
--- NOTE | 2021-04-08 16:58 | PDOC5 ---
CODE REPORT CODE REPORT Code blue activated. 30 yo F s/p cardiac arrest in refractory vfib, s/p rosc on hypothermia protocol. Potassium replaced. After ICU admission patient had significant rectal GI bleeding. I was informed by RN patient developed PEA arrest and received 2 of epi and 2 bicarb-obtain ROSC upon my ICU arrival. Please see nursing documents regarding documentation. I d/w Dr. Espinoza. MERON GUARDADO DO Apr 08, 2021 16:58
[2021-04-08] MEDS ORDERED: PHENYLEPHRINE INJ 50 MG in IV NORMAL SALINE 250ML 250 ML IV PRN (17:00)
[2021-04-08] MEDS: POTASSIUM CHLORIDE 20 MEQ in DIALYSIS SOLUTION BGK 0/2.5 5,000 ML IV SCH ×6 (17:08→21:01)
--- NOTE | 2021-04-08 17:14 | CONS ---
DATE OF CONSULTATION: 04/08/2021 ATTENDING PHYSICIAN: Rasheed Espinoza M.D. REASON FOR CONSULTATION: The patient is seen in pulmonary consultation at the request of Dr. Espinoza for [id number] cardiopulmonary arrest. HISTORY OF PRESENT ILLNESS: The patient is a 30-year-old with no past medical history except for alcoholism. The patient was brought to the Emergency Department by EMS, found initially with asystole 11:00 p.m. According to the current documentation the patient was well around 11:30 p.m. the night before last. She has no significant past medical history except for alcoholism, was seen on floor below the couch, found her. EMS was summoned. Initial glucose level was 375. The patient underwent defibrillation. She had epinephrine and amiodarone. She was transferred to the Emergency Department, she was intubated. At the time of my evaluation, the patient was in the intensive care unit, critically ill, on vasopressin, Levophed, received multiple boluses of IV fluids. Her blood pressure was still low. She was undergoing an echocardiogram. The tech reported that the EF was anywhere between 20-25%. The patient was also receiving IV amiodarone. She has been started on empiric antibiotics in the Emergency Room. I reviewed her CT chest. CT revealed several findings including significant consolidation of the right lower lobe. There was bilateral airspace disease, right greater than left. There was dilated within the small and large bowel related to either enteritis or an ileus. She had fatty infiltration of the liver. PAST MEDICAL HISTORY: Otherwise unremarkable. FAMILY HISTORY: Unknown. REVIEW OF SYSTEMS: Unobtainable secondary to patient's condition. PHYSICAL EXAMINATION: VITAL SIGNS: Stable. O2 saturation was greater than 92%, currently on assist control ventilation, 8 of PEEP, 100% FiO2. HEENT: Endotracheal tube in place. She had a great amount of blood coming out of the endotracheal tube. The nurse also reported blood per rectum. LUNGS: Bilateral rhonchi. CARDIOVASCULAR: Tachycardic. ABDOMEN: Soft. EXTREMITIES: No significant edema. LABORATORY DATA: Reviewed. Blood gas last time checked 7.06, PaCO2 42, pO2 of 53. I discussed this with RT. We increased the tidal volume 100. White count was noted. Hemoglobin and hematocrit of 11 and 35. Electrolytes were deranged. Potassium was low, total CO2 is 19, creatinine was 1.3. Glucose was elevated. AST and ALT were elevated, creatinine kinase was elevated. Albumin was markedly low. BNP was elevated. Troponin is elevated. IMPRESSION: 1. Pld-[id number] cardiopulmonary arrest. 2. Respiratory failure secondary to above. 3. Right ventricular fibrillation. 4. Metabolic acidosis, possible diabetic ketoacidosis. 5. Coagulopathy. 6. Liver failure. 7. History of alcoholism. 8. Possible anoxic brain injury. PLAN: 1. The patient is critically ill, we will make adjustments on minute ventilation to normalize pH. 2. Continue support with IV fluids and pressors. 3. Empiric antibiotics. 4. Continue IV insulin. 5. Consult Gastroenterology. 6. Consult Neurology. 7. The patient is to continue hypothermic protocol. I do appreciate the privilege in sharing in the patient's care, case discussed with RN, patient not expected to survive. GER DR: Kris TID: [id number]
[2021-04-08] MEDS: EPINEPHrine VIAL 5 MG in IV NORMAL SALINE 250ML 250 ML IV PRN ×2 (17:26→19:35)
[2021-04-08 17:32] LABS: BASO % 1 % (0-3); EOS % 0 % (0-3); HEMATOCRIT 28.7 % (36.0-47.0); HEMOGLOBIN 9.1 g/dL (12.0-15.5); LYMPH # 1.1 x10^3/uL (1.0-4.8); LYMPH % 29 % (24-48); MEAN CORPUSCULAR HEMOGLOBIN 35 pg (25-35); MEAN CORPUSCULAR HGB CONC 32 g/dL (31-37); MEAN CORPUSCULAR VOLUME 111 fL (79-100); MONO # 0.1 x10^3/uL (0.0-1.1); MONO % 2 % (0-9); NEUT # 2.6 x10^3/uL (1.8-7.7); NEUT % 69 % (31-73); PLATELET COUNT 34 x10^3/uL (140-400); RED BLOOD COUNT 2.59 x10^6/uL (3.50-5.40); RED CELL DISTRIBUTION WIDTH 15.5 % (11.5-14.5); WHITE BLOOD COUNT 3.8 x10^3/uL (4.0-11.0)
[2021-04-08 17:35] LABS: ALBUMIN 1.3 g/dL (3.4-5.0); ALBUMIN/GLOBULIN RATIO 0.8 (1.0-1.7); CREATININE 1.9 mg/dL (0.6-1.0); GFR 31.3; POTASSIUM 3.2 mmol/L (3.5-5.1); TOTAL BILIRUBIN 0.9 mg/dL (0.2-1.0)
[2021-04-08 17:39] LABS: CALCIUM 5.8 mg/dL (8.5-10.1)
[2021-04-08] MEDS ORDERED: ALBUMIN HUMAN 25% 100 ML IV ONE (17:45)
[2021-04-08 17:46] LABS: BASE EXCESS ABG -18 mmol/L (-3-3); CORRECTED PCO2 ABG 38 mmHg; CORRECTED PO2 ABG 34 mmHg; HCO3 ABG 12 mmol/L (21-28); PCO2 ABG 46 mmHg (35-46)
[2021-04-08 17:52] LABS: FIO2 ABG 100/VENTAC24 550 +8; PO2 ABG 46 mmHg (85-108); SAT O2 ABG 65 % (92-99)
[2021-04-08] MEDS ORDERED: methylPREDNISolone SOD SUCC PF 125 MG/2 ML VIAL. IV SCH (18:00)
[2021-04-08] MEDS ORDERED: MORPHINE SULFATE 4 MG/ML INJ. IV PRN (18:30)
[2021-04-08 18:48] LABS: PROTHROMBIN TIME PATIENT > 120.0 SEC (11.7-14.0)
[2021-04-08 18:50] LABS: PARTIAL THROMBOPLASTIN TIME > 150 SEC (24-38)
--- NOTE | 2021-04-08 19:20 | NUR ---
Block charting Pt admitted from ED at 1115. Pt had L IJ triple lumen central line, right ac 20g, right hand 20g, 7.5 ETT at 24 at the teeth, Vent set to AC 24 450 5 100% Bright red bloody secretions coming out of ETT. 16 FR OGT to LIS with bright red blood gastric contents. [address], with minimal yellow urine. Levophed was running at 0.1 mcg/kg/hr, amiodarone at 1 mg/hr, potassium replacement as well. Pt did not receive any sedation for intubation assessment completed upon arrival, pt did not withdraw to pain, had no cough, no gag, no pupil response, pupils were pinpoint, pt had scleral edema, coarse lung sounds, pt flaccid, no muscle tone noted. Pt CT head negative so hypothermia initiated per Dr Espinoza order, artic sun pads applied, when this RN went to insert rectal temperature probe when buttocks was lifted to insert, pt had bright red blood shoot out of rectum. Dr Espinoza on unit, notified of the blood, order for octreotide and protonix received as well as consult for GI. Pt was given gasping asynchronous to vent, vecuronium given as well as versed. Pt mother, Annie and , Bernardo at bedside, explained POC and grim prognosis to them. Pt blood pressures were very difficult to get consistently, sometimes just a MAP was available. Paged Anesthesia for arterial line, Dr Navarro attempted both radial and femoral arterial lines unsuccessfully, he stated he would attempt later in the afternoon. Levophed gtt titrated to max of 1 mcg/kg/hr. Vasopressin was started for blood pressure as well. Multiple sites attempted for NIBP. Pt cooled to temp by shayne lombardo. Pt Aunt is a CVICU nurse at , she helped explain all of the procedures and POC to family. Pt repeat ABG after vent settings was still very acidotic, discussed with Dr Espinoza, order for nephrology consult was received and order for temp dialysis cath and CRRT received from director of community education. Nursing shipping supervisor paged to notify IR doctor for line placement, family updated and consents signed. Trialysis catheter placed in right IJ by Dr Suazo, placement and ok to use given by him. Dialysis nurse here to start CRRT, DIRECTOR STRATEGY in room to try arterial line. Right femoral arterial line initiated with one stick by JONATAN Miller, sbp in low 100s, pt hooked up to CRRT by HD RN, pt blood pressure dropped to 60s, pt given a minute to see if bp would level out, bp continued to drop as well as heart rate, blood was returned to pt and dialysis discontinued by HD RN, pt became bradycardic in the 30s and arterial waveform flattened, code blue initiated, see paperwork. During chest compressions, blood was pouring out of rectum. ROSC achieved but blood pressure continued to be in the 80s despite maxed levophed and vasopressin, Dr Espinoza on unit and gave order for kenia-synepherine, gtt started and titrated up, DR Espinoza then gave order for epinepherine gtt when kenia-synepherine was at 2 mcg/kg/hr. Pt blood pressure continued to fall, epi, kenia, vaso and levo all maxed, bp continued to fall. DR Espinoza on unit, asked him to speak with family. Close family members in room, discuseed with Dr Espinoza, they decided on DNR and would have family come in and say goodbyes. MTN notified, they stated not to wihtdraw until they got here and would approach family, family still coming in to say goodbyes when MTN arrived, pt bp continuing to fall, pt is a first person donor, MTN spoke with pt and mother to notify them, bicarb pushed to help keep blood pressure up until DR Espinoza could make it in to pronounce pt and OR team could get here. All gtts still infusing. Sack Sewer Machine notified by MTN and this nurse spoke with her to notify of pt case. Pt had roughly 15 mL urine since admit, 400 mL bloody output from OG, gtts were titrated per protocol but pt was too unstable to chart each rate change. Labs drawn per orders, meds scanned and given per order. Nothing given po d/t bleed.
[2021-04-08] MEDS ORDERED: SODIUM BICARB ADULT 8.4% 50 MEQ/50 ML DISP.SYRIN. IV PRN (20:00)
--- NOTE | 2021-04-08 20:10 | CONS ---
DATE OF CONSULTATION: 04/08/2021 REQUESTING PHYSICIAN: Hospitalist. REASON FOR CONSULTATION: Renal failure and metabolic acidosis. HISTORY OF PRESENT ILLNESS: This 30-year-old female with history of diabetes mellitus and 2 vaginal births. She also has history of alcohol use of unknown amount. She was brought to the hospital, having been found on her couch by her . The patient was in cardiopulmonary arrest. Undisclosed amount of time. began CPR. EMS was summoned. On arrival, EMS found the patient to be asystolic. It is known as the patient was last known to be well around 11:30 p.m. the night before her rest. The patient was found to have glucose of 375 on arrival. She underwent 2 defibrillation for ventricular fibrillation, epinephrine x1, amiodarone 300 mg. Airway was placed. She was brought to the hospital. She found her oral gastric tube to be bleeding and also has noted to have rectal bleeding. Laboratories on arrival notable for CO2 of 17, anion gap of 21, BUN 8, creatinine 1.6, glucose 375. Lactic acid 13.4, phosphorus 9.9, magnesium 3.3, hemoglobin 11.4, white count of 10.1. Blood gas; pH 7.08, pCO2 of 35, bicarbonate 10, pO2 of 59 on FiO2 of 100%. INR 1.8, PTT 59. Urinalysis reveals large amount of blood, nitrite positive, many bacteria. Toxicology is notable for acetaminophen 5.42, salicylate 0.5, ethyl alcohol less than 10, ketones negative. She is COVID-[address] angio of the chest, abdomen and pelvis, no evidence of central lobar or proximal segmental pulmonary emboli, extensive bilateral airspace disease felt to be consistent with pneumonia. Head CT, no evidence of acute intracranial abnormality. PAST MEDICAL HISTORY: Two vaginal births, diabetes mellitus. ALLERGIES: None. MEDICATIONS: Reviewed per medication list. SOCIAL HISTORY: The patient has no known drug use. Does drink alcohol. The patient is , resides with and 2 children. FAMILY HISTORY: Noncontributory. REVIEW OF SYSTEMS: As per HPI, otherwise unremarkable. PHYSICAL EXAMINATION: GENERAL APPEARANCE: The patient intubated and sedated. HEENT: Oral intubation, sallow complexion. LUNGS: Bilateral rhonchi. CARDIAC: Without S3 or rub. ABDOMEN: Soft, nontender. EXTREMITIES: Without edema. NEUROPSYCHIATRIC: Sedated. LABORATORY DATA: As above. IMPRESSION: 1. Renal failure -- acute undoubtedly secondary to acute tubular necrosis in the setting of likely prolonged hemodynamic compromise. 2. Metabolic acidosis -- due to lactic acidosis and renal failure. 3. Cardiopulmonary arrest -- cause unclear. 4. Gastrointestinal bleed -- cause unknown. RECOMMENDATIONS: 1. We will proceed with CRRT to help maintain acid base balance, fluid and electrolyte balance. 2. GI is evaluating. 3. Cardiology is evaluating. 4. Neurology is evaluating. 5. Antibiotics to assist in management of possible urinary tract infection, etc. 6. We will follow. KEN DR: Aury TID: [id number]
[2021-04-08] MEDS ORDERED: HEPARIN for IV BOLUS 10,000 UNIT/10 ML VIAL. IV ONE (20:15)
[2021-04-08] MEDS ORDERED: DEXTROSE 50% 25 GM / 50ML DISP.SYRIN. IV PRN (20:45)
[2021-04-08] MEDS ORDERED: AMPICILLIN/SULBACTAM 3 GM in IV NORMAL SALINE 100ML 100 ML IV SCH (21:00)
--- NOTE | 2021-04-08 21:56 | PDOC3 ---
DISCHARGE SUMMARY DISCHARGE SUMMARY: Care withdrawn from patient. No pulse palpated, no heart sounds ascultated, no corneal reflex no w/d to pain no spontaneous breaths Time of : 2154 Justicifation of Admission Dx: Justifications for Admission: Justification of Admission Dx: Yes Respiratory Failure: Mechanical Ventilation KARTHIKEYAN MACARIO MD Apr 08, 2021 21:56
--- NOTE | 2021-04-08 22:00 | NUR ---
Nursing Note: Dr Espinoza, [place] team, OR team, and family all at bedside when care was withdrawn from patient. Patient was extubated at 2141 by RT and this nurse turned off all blood pressure drips, insulin drip and bicarb drip. Patient showed no sign of pain. Time of was called by Dr. Espinoza at 2154. Patient was then taken to OR right after time of called.
--- NOTE | 2021-04-09 00:16 | RAD ---
XR ABDOMEN 1V History: Instrument count Comparison: None. Technique: KUB of the abdomen Findings: A resuscitation pad projects over the midline upper chest. In the central pelvis there is a wire proj ecting which likely represents a bladder temperature probe. No instruments, needles or other foreign bodies are identified. Impression: 1. Resuscitation pad at the chest and suspected temperature probe lead in the pelvis. No other retai diana instruments are identified. Electronically signed by: Tristen Keen MD (04/09/2021 12:14 AM) [id number]
--- NOTE | 2021-04-09 01:26 | EKG ---
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
--- NOTE | 2021-04-09 01:26 | EKG ---
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
[2021-04-09] MEDS ORDERED: ELECTROLYTE (ICU) PROTOCOL. MC SCH (09:00)
[2021-04-09] MEDS ORDERED: PANTOPRAZOLE IV PUSH 40 MG VIAL. IVP SCH (09:00)
--- NOTE | 2021-04-10 09:40 | RAD ---
Procedures: Ultrasound guided non-tunneled line placement. Clinical Indication: Post code with elevated potassium The Procedure was deemed medically necessary, this was documented on the chart prior to beginning the procedure. The patient was prepped and draped using maximum sterile technique, including the use of: Current helen deline approved cutaneous antisepsis, a large sterile sheet to establish a sterile field. Additionall y the mobile health vehicle operator wore a hat, mask, sterile gloves, a sterile gown during the procedure as well as pract iced acceptable hand hygiene prior to placing the line. If ultrasound was utilized, sterile ultrasoun d technique was followed. Lidocaine epinephrine was used for local anesthesia. Ultrasound-guided access: The neck was scanned by ultrasound, the internal jugular vein is patent an d compressible. Under ultrasound guidance, a single wall puncture was made into the vein followed by wire placement with subsequent tract dilation. An Ultrasound image was saved and sent to PACS. Next a 20 centimeter long hemodialysis catheter was advanced. The lumens were flushed with heparinized sa line. STAT Chest radiograph was ordered to confirm placement. Results are pending. Complication: none Contrast: none Sedation: none Conclusion: Successful right internal jugular non-tunneled hemodialysis catheter placement. Electronically signed by: Prem Suazo MD (04/10/2021 9:38 AM) [id number]
[2021-04-13] MEDS ORDERED: MULTIVITAMIN with MINERAL TABLET. PO SCH (09:00)
[2021-04-13] MEDS ORDERED: THIAMINE 100 MG TABLET. PO SCH (09:00)
[2021-04-13] MEDS ORDERED: FOLIC ACID 1 MG TABLET. PO SCH (09:00)
== END 2021-04-08 22:00 | DRG 871 ==
LOC: ER 07:54 → 1 WEST ICU 09:13
PROVIDERS: ADMIT Student in an Organized Health Care Education/Training Program; ATTEND Student in an Organized Health Care Education/Training Program
PROC: 0BH17EZ Insertion of Endotracheal Airway into Trachea, Via Natural or Artificial Opening (ICD-10-PCS; 2021-04-08)
PROC: 02H633Z Insertion of Infusion Device into Right Atrium, Percutaneous Approach (ICD-10-PCS; 2021-04-08)
PROC: B548ZZA Ultrasonography of Superior Vena Cava, Guidance (ICD-10-PCS; 2021-04-08)
PROC: 03HY32Z Insertion of Monitoring Device into Upper Artery, Percutaneous Approach (ICD-10-PCS; 2021-04-08)
PROC: 5A1935Z Respiratory Ventilation, Less than 24 Consecutive Hours (ICD-10-PCS; principal; 2021-04-08 21:00)
DX: A41.9 Sepsis, unspecified organism (principal); E11.10 Type 2 diabetes mellitus with ketoacidosis without coma; I50.21 Acute systolic (congestive) heart failure; J96.01 Acute respiratory failure with hypoxia; N17.0 Acute kidney failure with tubular necrosis; D68.9 Coagulation defect, unspecified; E72.20 Disorder of urea cycle metabolism, unspecified; N39.0 Urinary tract infection, site not specified; K92.2 Gastrointestinal hemorrhage, unspecified; D53.9 Nutritional anemia, unspecified; D69.6 Thrombocytopenia, unspecified; E87.6 Hypokalemia; F17.210 Nicotine dependence, cigarettes, uncomplicated; F17.290 Nicotine dependence, other tobacco product, uncomplicated; I46.2 Cardiac arrest due to underlying cardiac condition; I49.01 Ventricular fibrillation; K52.9 Noninfective gastroenteritis and colitis, unspecified; K72.90 Hepatic failure, unspecified without coma; K76.0 Fatty (change of) liver, not elsewhere classified; Z20.822 Contact with and (suspected) exposure to COVID-19; Z82.49 Family history of ischemic heart disease and other diseases of the circulatory system; F10.20 Alcohol dependence, uncomplicated
CPT/HCPCS: 31500; 36415; 36556; 36600; 51702; 70450; 71045; 71275; 72125; 74018; 74174; 76937; 80047; 80048; 80053; 80307; 80329; 81001; 82010; 82140; 82248; 82550; 82805; 82962; 83605; 83615; 83735; 83880; 83930; 84100; 84484; 84703; 85007; 85025; 85610; 85730; 86850; 86900; 86901; 87040; 87076; 87077; 87086; 87186; 87205; 87426; 92950; 93005; 93306; 94002; 99292; A4222; C1892; C9113; G0480; J0171; J0282; J0295; J0456; J0690; J1644; J1815; J2250; J2310; J2354; J2370; J3370; J3411; J3475; J3480; J3490; J7030; J7040; J7050; J7060; Q9967; U0003; U0005; 99291-25; G0378